=== PATIENT | female | born 1950 | race Caucasian/White ===

== ENCOUNTER 2017-08-09 07:14 | Day surgery (SDC) | payer MEDICARE ==
[2017-08-03 16:15] VITALS: BMI 30.2
[~2017-08-09 07:14] MED LIST: LACTATED RINGERS 1,000 ML IV SCH; LIDOCAINE 1% 20 ML VIAL (10MG/ML) FOR IV START INTRADERMA PRN; MOXIFLOXACIN HCL 0.5% DROPS 3 ML BTL OP ONE; TETRACAINE 0.5% OPHTH (PF) DROPS 4 ML BTL OP ONE; TIMOLOL 0.5% OPHTH SOLN (PF) 0.2 ML DROPERETTE OP ONE
[2017-08-09] MEDS: PHENYLEPHRINE 2.5% OPHTH DRP 2ML OP NR ×4 (07:43→08:08)
[2017-08-09] MEDS: CYCLOPENTOLATE 1% OPHTH SOLN 2 ML BTL OP ONE ×3 (07:45→08:03)
[2017-08-09 07:57] VITALS: TEMP 97
[2017-08-09] MEDS ORDERED: MIDAZOLAM 2 MG/2 ML VIAL ONE (08:39)
[2017-08-09] MEDS ORDERED: fentaNYL (PF) 50 MCG/ML 2 ML AMP ONE (08:39)
[2017-08-09] MEDS ORDERED: EPINEPHrine (PF) 0.3 ML in BALANCED SALT IRRIG SOLN COMB2 500 ML IRRIGATION ONE (08:44)
[2017-08-09] MEDS ORDERED: HYALURONATE SODIUM INTRAOCULAR 1 EACH SYRINGE (12MG/ML) INTRAOCULA ONE (08:47)
[2017-08-09] MEDS ORDERED: BALANCED SALT IRRIG SOLN COMB2 15 ML IRRIG.SOLN INTRAOCULA ONE (08:48)
[2017-08-09] MEDS ORDERED: LIDOCAINE 1% (PF) 10MG/ML VIAL MISCELLANE ONE (08:48)
[2017-08-09] MEDS ORDERED: TRYPAN BLUE 0.06% SYRINGE 0.5 ML SYRINGE INTRAOCULA ONE (08:49)
[2017-08-09] MEDS ORDERED: DUOVISC KIT (GREEN BOX) INTRAOCULA ONE (08:55)
--- NOTE | 2017-08-09 09:23 | P.OP ---
Date of Procedure: 08/09/17 Preoperative Diagnosis: NS & CS & moderate stage POAG Postoperative Diagnosis: same Procedure(s) Performed: PIOL & iStent Implants: PCB00 +18.00 & GTS 100L Anesthesia: MAC Surgeon: Christian Cornejo Estimated Blood Loss (ml): 0 Pathology: none sent Condition: stable Disposition: same day Indications for Procedure: blurry vision & glaucoma Operative Findings: no complicatinos
[2017-08-09 09:31] VITALS: BP 134/87; PULSE 77; RESP 18
--- NOTE | 2017-08-09 21:14 | OP ---
OPERATIVE REPORT DATE OF SURGERY: 08/09/2017 PREOPERATIVE DIAGNOSES:: 1. Nuclear sclerosis. 2. Cortical sclerosis. 3. Open angle glaucoma, moderate stage. POSTOPERATIVE DIAGNOSES:: 1. Nuclear sclerosis. 2. Cortical sclerosis. 3. Open angle glaucoma, moderate stage. OPERATION:: Phacoemulsification of cataract and intraocular lens implant of the left eye with an eye stent implantation. ESTIMATED BLOOD LOSS:: None. SPECIMEN TAKEN:: None. SURGEON: Dr. Christian Cornejo. ANESTHESIA: Topical. NARRATIVE:: After obtaining the appropriate consent, the patient was brought to the operating room, where she was placed on a clay preparation supervisor and prepped and draped in the usual sterile manner. She was approached from her left temporal side and at the 5 o'clock position, a 1.1-mm stab blade was used to create a paracentesis port. Through this opening, 1% Xylocaine MPF 50/50 mixed with balanced salt solution was injected into the anterior chamber. This was followed by installation of Trypan blue, which was left in place for approximately 3 minutes. Trypan was irrigated with balanced salt solution, then the anterior chamber was stabilized using Amvisc. At the 3 o'clock position, a 2.5-mm keratome was used to create a self-sealing corneal flap incision. The patient's head was rotated toward her right approximately 45 degrees and examination of the nasal anterior chamber angle easily identified the trabecular mesh work. A Glaukos GTS 100L eye stent was advanced across the anterior chamber and placed into the trabecular meshwork without difficulty. The device was confirmed in good position with the tip of the viscoelastic cannula. The patient was then rotated back to the normal supine position for the removal of the rest of the cataract. A cystotome was introduced to begin a continuous tear capsulorrhexis, which was completed using the Utrata forceps. Hydrodissection and hydrodelineation of the lens was accomplished with balance salt solution. Phacoemulsification of the lens utilizing phaco chop was accomplished in 1.16 seconds at 11% power. Additional Xylocaine MPF was instilled into the anterior chamber. This was followed by removal of the remaining cortex under irrigation and aspiration along with careful polishing of the posterior capsule in capsule vacuum mode. Additional Amvisc was then used to stabilize the capsular bag and an JACKY PCB00 18.0 diopter posterior chamber intraocular lens was then inserted into the capsular bag without difficulty. The remaining viscoelastic was then removed from in and around the intra-ocular lens with irrigation and aspiration. The eye was then brought to normal intraocular pressures through the paracentesis port with confirmation that the temporal incision was watertight. She then received 2 drops of 0.5% timolol followed by 2 drops of Vigamox, was then lightly patched and shielded in the usual manner. There were no complications from the procedure. She tolerated the procedure well and was returned to outpatient recovery in good condition. MMODL / IJN: [id number] /
== END 2017-08-09 09:57 | disposition home or self-care (01) ==
LOC: OR 07:14
PROVIDERS: ATTEND Ophthalmology
DX: H40.1132 Primary open-angle glaucoma, bilateral, moderate stage (principal); H25.12 Age-related nuclear cataract, left eye; H52.223 Regular astigmatism, bilateral; H52.4 Presbyopia; H52.13 Myopia, bilateral; H00.023 Hordeolum internum right eye, unspecified eyelid; M19.90 Unspecified osteoarthritis, unspecified site; Z88.8 Allergy status to other drugs, medicaments and biological substances; Z79.899 Other long term (current) drug therapy
CPT/HCPCS: 66984; C1780; C1783; J2250; J0171; J3010; J2001

== ENCOUNTER → 2017-11-10 | Outpatient (CLI) | payer MEDICARE ==
--- NOTE | 2017-11-13 11:45 | MM ---
Reason for exam: screening (asymptomatic). Last mammogram was performed 1 year and 6 months ago. History: Patient is postmenopausal. Family history of breast cancer in paternal grandmother, premenopausal breast cancer in paternal cousin, breast cancer in cousin, and breast cancer in aunt. Excisional biopsy of the right breast, 1960. Took hormonal contraceptives for 10 years beginning at age 14. Took estrogen for 8 years beginning at age 30. Took progesterone for 3 years beginning at age 51. Physical Findings: A clinical breast exam by your physician is recommended on an annual basis and results should be correlated with mammographic findings. MG 3D Screening Mammo W/Cad Bilateral CC and MLO view(s) were taken. Prior study comparison: May 24, 2016, bilateral MG 3d screening mammo w/cad. December 25, 2013, bilateral digital screening mammo w/CAD. There are scattered fibroglandular densities. Stable benign calcifications. No significant changes when compared with prior studies. ASSESSMENT: Benign, BI-RAD 2 RECOMMENDATION: Routine screening mammogram of both breasts in 1 year.
== END | disposition home or self-care (01) ==
LOC: RADMAMWWP 09:01
PROVIDERS: ATTEND Family Medicine
DX: Z12.31 Encounter for screening mammogram for malignant neoplasm of breast (principal)
CPT/HCPCS: 77063; 77067

== ENCOUNTER 2017-11-22 06:02 | Day surgery (SDC) | payer MEDICARE ==
[2017-11-17 10:59] VITALS: BMI 30.2
[2017-11-22] MEDS ORDERED: LACTATED RINGERS 1,000 ML IV SCH (06:10)
[2017-11-22] MEDS ORDERED: LIDOCAINE 1% 20 ML VIAL (10MG/ML) FOR IV START INTRADERMA PRN (06:10)
[2017-11-22 06:41] VITALS: TEMP 98.7
[2017-11-22] MEDS: PILOCARPINE 2% OPHTH DROPS 15 ML BTL OP SCH ×4 (06:54→07:39)
[2017-11-22] MEDS ORDERED: ONDANSETRON 4 MG/2 ML VIAL IVP ONE (07:01)
[2017-11-22] MEDS ORDERED: DUOVISC KIT (GREEN BOX) INTRAOCULA ONE (07:17)
[2017-11-22] MEDS ORDERED: BALANCED SALT IRRIG SOLN COMB2 15 ML IRRIG.SOLN IRRIGATION ONE (07:17)
[2017-11-22] MEDS ORDERED: MOXIFLOXACIN HCL 0.5% DROPS 3 ML BTL RIGHT EYE ONE (07:21)
[2017-11-22] MEDS ORDERED: TIMOLOL 0.5% OPHTH SOLN (PF) 0.2 ML DROPERETTE RIGHT EYE ONE (07:21)
[2017-11-22] MEDS ORDERED: MIDAZOLAM 2 MG/2 ML VIAL ONE (07:27)
[2017-11-22] MEDS ORDERED: BALANCED SALT IRRIG SOLN COMB2 500 ML IRRIGATION ONE (07:33)
[2017-11-22] MEDS ORDERED: LIDOCAINE (PF) 10 MG/ML 2 ML VIAL SQ ONE (07:38)
[2017-11-22] MEDS ORDERED: TETRACAINE 0.5% OPHTH DROPS 15 ML BTL RIGHT EYE SCH (07:45)
[2017-11-22 08:13] VITALS: RESP 18
--- NOTE | 2017-11-22 08:39 | P.OP ---
Date of Procedure: 11/22/17 Preoperative Diagnosis: POAG Postoperative Diagnosis: same Procedure(s) Performed: viscanaloplasty OD. Implants: none Anesthesia: MAC Surgeon: Christian Cornejo Estimated Blood Loss (ml): 5 Pathology: none sent Condition: stable Disposition: same day Indications for Procedure: POAG not controlled on medication well. Operative Findings: no complications
[2017-11-22 08:56] VITALS: BP 150/78; PULSE 82
--- NOTE | 2017-11-23 07:45 | OP ---
OPERATIVE REPORT DATE OF SURGERY: November 22, 2017. PROCEDURES: Visco canaloplasty of the right eye. PREOPERATIVE DIAGNOSIS: Primary open-angle glaucoma, moderate stage. POSTOPERATIVE DIAGNOSIS: Primary open-angle glaucoma, moderate stage. SURGEON: Dr. Christian Cornejo. ANESTHESIA: Topical. ESTIMATED BLOOD LOSS: Less than 5 mL. SPECIMEN TAKEN: None. BACKGROUND: The patient has a longstanding history of primary open-angle glaucoma and is becoming intolerant to the topical medications. The Visco canaloplasty procedure was chosen in an attempt to reduce the dependence on topical medications for her glaucoma. NARRATIVE: After obtaining the appropriate consent, the patient was brought to the operating room. There she was placed on cardiac monitoring, prepped and draped in the usual sterile manner. She was approached from her right temporal side and at the 11 o'clock position an MVR blade was used to create a paracentesis port. Through this opening 1% lidocaine MPF 50-50 mix of balanced salt solution was injected into the anterior chamber. This was followed by stabilization of the anterior chamber with Viscoat. At the 9 o'clock position, a 2.5 mm keratome was used to create a self-sealing corneal flap incision in a Langerman's fashion. Additional Viscoat was placed on the patient's cornea and she was asked to rotate her head approximately 45 degrees to her left and a Gonia prism was placed on the eye to identify the trabecular meshwork. At this stage, a [id number] device was passed across the anterior chamber into the nasal trabecular meshwork where a vertical slit over the trabecular meshwork was created. The cannula was then passed beneath and into Schlemm's canal in the superior direction for approximately 180 degrees and retracted. The device was then rotated 180 degrees and the inferior Schlemm's canal was then cannulated with the cannulation device. At this stage rather than retracting the cannula, however, a trabeculectomy was performed for approximately 120 degrees in this particular area. A moderate amount of blood was identified and the remaining viscoelastic was then removed under irrigation aspiration. The eye was then brought to normal intraocular pressure through the paracentesis port and the temporal incision was confirmed watertight. She then received 2 drops of 0.5% timolol followed by 2 drops of moxifloxacin and 2 drops of 2% pilocarpine. She was then lightly patched and shielded in the usual manner. There were no complications from the procedure. She tolerated the procedure well. She was returned to outpatient recovery in good condition. HUSSEIN / MIGUELN: [id number] /
== END 2017-11-22 08:57 | disposition home or self-care (01) ==
LOC: OR 06:02
PROVIDERS: ATTEND Ophthalmology
DX: H40.1112 Primary open-angle glaucoma, right eye, moderate stage (principal); H52.13 Myopia, bilateral; H52.223 Regular astigmatism, bilateral; H52.4 Presbyopia; H00.026 Hordeolum internum left eye, unspecified eyelid; Z96.1 Presence of intraocular lens; I10 Essential (primary) hypertension; M19.90 Unspecified osteoarthritis, unspecified site; E89.0 Postprocedural hypothyroidism; Z79.899 Other long term (current) drug therapy; Z79.1 Long term (current) use of non-steroidal anti-inflammatories (NSAID); Z88.8 Allergy status to other drugs, medicaments and biological substances; H00.023 Hordeolum internum right eye, unspecified eyelid
CPT/HCPCS: 66174; J2250; J2001; J2405

== ENCOUNTER → 2018-02-28 | Outpatient (CLI) | payer MEDICARE ==
[2018-02-28 10:36] LABS: Blood Urea Nitrogen 21 mg/dL (7-17)
--- NOTE | 2018-02-28 11:16 | CT ---
EXAMINATION TYPE: CT abdomen w con DATE OF EXAM: 02/28/2018 COMPARISON: NONE HISTORY: Upper abd pain, abn US, renal cyst CT DLP: 816.7 mGycm Automated exposure control for dose reduction was used. TECHNIQUE: Helical acquisition of images was performed from the lung bases through the top of iliac crest to include entire abdomen. CONTRAST: Performed with Oral Contrast and with IV Contrast, patient injected with 100 mL of Isovue 300. FINDINGS: LUNG BASES: No significant abnormality is appreciated. Small fixed hiatal hernia noted. LIVER/GB: Mild hepatic steatosis. No space-occupying masses seen. Gallbladder is unremarkable. PANCREAS: No significant abnormality is seen. SPLEEN: No significant abnormality is seen. ADRENALS: Small left adrenal nodule measuring 9 mm may reflect adenoma. Right adrenal gland is unrema rkable. KIDNEYS: Simple appearing cyst midpole left kidney measuring 2.4 cm with Hounsfield unit measurement of 11. No solid renal lesions identified. BOWEL: No significant abnormality is seen. LYMPH NODES: No significant abnormality is seen. OSSEOUS STRUCTURES: No significant abnormality is seen. FREE AIR: No free air is visualized. IMPRESSION: 1. Simple cyst left kidney. 2. Left adrenal adenoma. 3. A fixed hiatal hernia
== END | disposition home or self-care (01) ==
LOC: RADCTMAIN 10:03
PROVIDERS: ATTEND Family Medicine
DX: N28.1 Cyst of kidney, acquired (principal); D35.02 Benign neoplasm of left adrenal gland; K44.9 Diaphragmatic hernia without obstruction or gangrene; R10.9 Unspecified abdominal pain
CPT/HCPCS: 82565; 84520; 74160; 36415; Q9967

== ENCOUNTER → 2018-03-14 | Outpatient (CLI) | payer MEDICARE ==
[~2018-03-14] MED LIST changes: -LACTATED RINGERS 1,000 ML IV SCH; -LIDOCAINE 1% 20 ML VIAL (10MG/ML) FOR IV START INTRADERMA PRN; -MOXIFLOXACIN HCL 0.5% DROPS 3 ML BTL OP ONE; +REGADENOSON 0.4 MG/5 ML SYRINGE IV ONE; -TETRACAINE 0.5% OPHTH (PF) DROPS 4 ML BTL OP ONE; -TIMOLOL 0.5% OPHTH SOLN (PF) 0.2 ML DROPERETTE OP ONE
--- NOTE | 2018-03-14 11:17 | NM ---
EXAMINATION TYPE: NM stress lexiscan cardiolite DATE OF EXAM: 03/14/2018 COMPARISON: NONE HISTORY: Abnormal EKG per order. History of asthma, hypertension, hypercholesteremia, and family hist ory of heart attacks. TECHNIQUE: After the intravenous administration of 10.06 mCi Tc 99m Sestamibi - Cardiolite resting S PECT images acquired 45 minutes post injection. The patient received 0.4mg Lexiscan, 23.5 mCi Tc 99m Sestamibi - Stress images obtained [address] injection FINDINGS: Review of stress and rest SPECT images demonstrates no distinct perfusion abnormality. Gated analysi s shows normal wall motion with an estimated left ventricular ejection fraction of 58 %. IMPRESSION: No scintigraphic evidence for reversible ischemia.
--- NOTE | 2018-03-14 12:25 | EST ---
EXERCISE STRESS DATE OF SERVICE: 03/14/2018 AGE: 67 SEX: Female HT: 60" WT: 150 pounds PROTOCOL: Lexiscan Cardiolite STAGE: DURATION OF EXERCISE: HEART RATE REST: 87 BLOOD PRESSURE REST: 146/88 MAXIMUM HEART RATE ACHIEVED: 119 MAXIMUM BLOOD PRESSURE: 179/99 85% MPHR: 100% MPHR: METS: INDICATIONS: Abnormal EKG. CLINICAL INFORMATION: Baseline rhythm is sinus mechanism, rate of 87, normal axis and intervals. Normal electrocardiogram. Baseline blood pressure 146/88 mmHg. Patient received an injection of Lexiscan. Electrocardiographic monitoring revealed no evidence of diagnostic ischemic ST deviation. Cardiolite was injected per protocol. CONCLUSION: 1. Nondiagnostic electrocardiographic stress testing. 2. Nuclear images will be reported separately. MMODL / IJN: [id number] /
== END | disposition home or self-care (01) ==
LOC: RADNMMAIN 07:54
PROVIDERS: ATTEND Family Medicine
DX: R94.31 Abnormal electrocardiogram [ECG] [EKG] (principal)
CPT/HCPCS: 93017; 78452; A9500; J2785

== ENCOUNTER → 2019-07-11 | Outpatient (CLI) | payer MEDICARE ==
--- NOTE | 2019-07-12 09:27 | BD ---
EXAMINATION TYPE: Axial Bone Density DATE OF EXAM: 07/11/2019 COMPARISON: 05.19.2016 CLINICAL HISTORY: M 81.0 Height: 60 Weight: 159.4 FRAX RISK QUESTIONS: Alcohol (3 or more units per day): no Family History (Parent hip fracture): no Glucocorticoids (More than 3mos): no (Ex: prednisone, prednisolone, methylprednisolone, dexamethasone, and hydrocortisone). History of Fracture in Adulthood: no Secondary Osteoporosis: 1. Type 1 Diabetes: no 2. Hyperthyroidism: no 3. Menopause before 45: yes 4. Malnutrition: no 5. Chronic liver disease: no Rheumatoid Arthritis: no Current Tobacco Use: no RISK FACTORS HISTORY OF: Surgery to Spine/Hip(right/left)/Wrist (right/left): no Family History of Osteoporosis: yes Active: yes Diet low in dairy products/other sources of calcium: yes Postmenopausal woman: hysterectomy age 30 MEDICATIONS: cholesterol meds Osteoporosis Medications: fosamax How Lon weeks but took it in the past- has been off it for 3 years Additional History: EXAM MEASUREMENTS: Bone mineral densitometry was performed using the [employer]out System. Bone mineral density as measured about the Lumbar spine is: ----- L1-L4(G/cm2): 1.063 T Score Values are as follows: ----- L2: -0.7 ----- L3: -0.5 ----- L4: -2.0 ----- L1-L4: -1.0 Bone mineral density has: increased 10.1 % since study of: 05.24.2016 Bone mineral density about the R hip (g/cm2): 0.661 Bone mineral density about the L hip (g/cm2): 0.635 T Score values are as follows: -----R Neck: -2.7 -----L Neck: -2.9 -----R Total: -2.3 -----L Total: -2.3 Bone mineral density has: increased 7.3 % since study of: 05.19.2016 IMPRESSION: Osteoporosis (T Score less than -2.5). There is increased fracture risk and therapy is usually indicated based on age. Re-Screen 1-2 years. NOTE: T-SCORE=SD OF THE YOUNG ADULT MEAN.
--- NOTE | 2019-07-12 11:37 | MM ---
Reason for exam: screening (asymptomatic). Last mammogram was performed 1 year and 8 months ago. History: Patient is postmenopausal and history of other cancer. Family history of breast cancer in paternal grandmother, premenopausal breast cancer in paternal cousin, breast cancer in cousin, and breast cancer in aunt. Excisional biopsy of the right breast, 1960. Took hormonal contraceptives for 10 years beginning at age 14. Took estrogen for 8 years beginning at age 30. Took progesterone for 3 years beginning at age 51. Physical Findings: A clinical breast exam by your physician is recommended on an annual basis and results should be correlated with mammographic findings. MG 3D Screening Mammo W/Cad Bilateral CC and MLO view(s) were taken. Prior study comparison: November 10, 2017, bilateral MG 3d screening mammo w/cad. May 24, 2016, bilateral MG 3d screening mammo w/cad. The breast tissue is heterogeneously dense. This may lower the sensitivity of mammography. Benign appearing bilateral calcifications. No suspicious abnormality. No significant changes when compared with prior studies. ASSESSMENT: Benign, BI-RAD 2 RECOMMENDATION: Routine screening mammogram of both breasts in 1 year.
== END | disposition home or self-care (01) ==
LOC: RADMAMWWP 15:22
PROVIDERS: ATTEND Family Medicine
DX: Z12.31 Encounter for screening mammogram for malignant neoplasm of breast (principal); M81.0 Age-related osteoporosis without current pathological fracture
CPT/HCPCS: 77063; 77067; 77080

== ENCOUNTER 2021-04-07 08:57 | Day surgery (SDC) | payer MEDICARE ==
[2021-04-05 12:30] VITALS: BMI 30.8
[~2021-04-07 08:57] MED LIST changes: -REGADENOSON 0.4 MG/5 ML SYRINGE IV ONE; +TOBRAMYCIN 0.3% OPHTH DROPS 5 ML BTL RIGHT EYE PRN; +mitoMYcin for Eyes 0.06 MG, EMPTY SYRINGE 1 SYR OP ONE
[2021-04-07 09:29] VITALS: RESP 16; TEMP 97.5
[2021-04-07] MEDS ORDERED: LACTATED RINGERS 1,000 ML IV ONE (09:34)
[2021-04-07] MEDS ORDERED: LIDOCAINE 1% (10MG/ML) FOR IV START INTRADERMA ONE (09:35)
[2021-04-07] MEDS ORDERED: MIDAZOLAM 2 MG/2 ML VIAL ONE (10:18)
[2021-04-07] MEDS ORDERED: fentaNYL (PF) 50 MCG/ML 2 ML AMP ONE (10:18)
[2021-04-07] MEDS ORDERED: TETRACAINE 0.5% OPHTH (PF) DROPS 4 ML BTL RIGHT EYE STA (10:20)
[2021-04-07] MEDS ORDERED: BALANCED SALT IRRIG SOLN COMB2 15 ML IRRIG.SOLN IRRIGATION ONE (10:31)
[2021-04-07] MEDS ORDERED: LIDOCAINE 2%-EPI 1:100,000 20 ML VIAL SQ ONE (10:49)
[2021-04-07] MEDS ORDERED: FLUORESCEIN STRIPS 1 MG STRIP RIGHT EYE ONE (11:33)
[2021-04-07] MEDS ORDERED: ATROPINE OPHTH SOLN 1% 2 ML BTL RIGHT EYE ONE (11:36)
--- NOTE | 2021-04-07 11:39 | P.OP ---
Date of Procedure: 04/07/21 Preoperative Diagnosis: POAG severe, not controlled Postoperative Diagnosis: same Procedure(s) Performed: exPress Shunt w/ MMC Implants: exPress shunt Anesthesia: MAC Surgeon: Christian Cornejo Pathology: none sent Condition: stable Disposition: same day Indications for Procedure: poor IOP control Operative Findings: no complications
[2021-04-07 12:15] VITALS: BP 157/90; PULSE 97
--- NOTE | 2021-04-08 21:57 | OP ---
OPERATIVE REPORT DATE OF SURGERY: April 07, 2021. PROCEDURE PERFORMED: Express shunt implantation with mitomycin treatment. PREOPERATIVE DIAGNOSIS: Primary open-angle glaucoma, moderate stage. POSTOPERATIVE DIAGNOSIS: Primary open angle glaucoma, moderate stage. SURGEON: Dr. Christian Cornejo. ANESTHESIA: Topical. ESTIMATED BLOOD LOSS: Less than 5 mL. SPECIMEN: None. NARRATIVE: After obtaining the appropriate consent, the patient was brought to the operating room. There she was placed on cardiac monitoring prepped and draped in the usual sterile manner. The patient was approached from the 12 o'clock position and a 5-0 Vicryl suture was placed through the superior limbus of the cornea and applied as a traction suture to direct the eye in a down gaze. At the superior temporal quadrant, the conjunctiva was dissected down to bare sclera with Mason scissors and beneath this area 2% lidocaine with epinephrine was bathed around the superior portion of the globe in the subtenon's space. Using blunt and sharp dissection, as needed a large superior pocket was created between the tenon and the globe. The conjunctiva was undermined as far as to the superior nasal quadrant of the eye and a peritomy of the conjunctiva was then created at the 12 o'clock position. All hemostasis was controlled using limited wet-field cautery and an area approximately 3 x 3 mm, which was identified using a bear care caliper was placed at the 12 o'clock position. This area was further outlined using the wet-field cautery to desiccate the scleral tissue. A 2.75 mm crescent blade was used to create a scleral pocket within the boundaries of this area and the Mason scissors were then used to open up either side of the newly created pocket. Mitomycin at the strength of 0.2 mg/mL was soaked into a Weck-Sury sponge which was then placed against the apex of the newly created partial thickness scleral flap. This was left in place for 3 minutes. Copious irrigation after the tissue was treated with mitomycin was then applied and a 27-gauge hypodermic needle was used then as a trocar at the apex of the partial-thickness scleral flap to create an opening into the anterior chamber. Care was taken to maintain a parallel approach to the iris through this opening. This was followed by placement of an Ex-Press model P50 shunt was placed through the previously piloted scleral opening. Good reduction of aqueous was noted from the anterior chamber once the placement of the shunt tube was properly seated and the partial-thickness scleral flap was loosely sutured back to the sclerae using 10-0 nylon suture on each side of the flap. Additional hemostasis was applied to any residual evidence of bleeding and the conjunctiva was then brought over the superior limbus of the cornea and at the superior temporal area 8-0 Vicryl suture was used to reapproximate the cut edges and with the knot buried beneath the conjunctival tissue. Fluorescein strip was used to prove watertight integrity and the traction suture was removed from the eye. The patient then received 2 drops of tobramycin ophthalmic medication and 2 drops of 1% atropine at the end of the case. She was then lightly patched and shielded in the usual manner. There were no complications from the procedure. She tolerated the procedure well and was returned to outpatient recovery in good condition. HUSSEIN / GLORIA: [id number] /
== END 2021-04-07 12:26 | disposition home or self-care (01) ==
LOC: OR 08:57
PROVIDERS: ATTEND Ophthalmology
DX: H40.1132 Primary open-angle glaucoma, bilateral, moderate stage (principal); H16.223 Keratoconjunctivitis sicca, not specified as Sjogren's, bilateral; H00.023 Hordeolum internum right eye, unspecified eyelid; H00.026 Hordeolum internum left eye, unspecified eyelid; H47.393 Other disorders of optic disc, bilateral; H52.223 Regular astigmatism, bilateral; H52.13 Myopia, bilateral; H52.4 Presbyopia; Z96.1 Presence of intraocular lens; I10 Essential (primary) hypertension; M19.90 Unspecified osteoarthritis, unspecified site; Z79.899 Other long term (current) drug therapy; Z88.1 Allergy status to other antibiotic agents; Z88.8 Allergy status to other drugs, medicaments and biological substances; Z83.3 Family history of diabetes mellitus; Z82.49 Family history of ischemic heart disease and other diseases of the circulatory system
CPT/HCPCS: 66183; C1783; J2250; J3010

== ENCOUNTER 2021-09-03 18:41 | Observation (INO) | payer MEDICARE ==
[2021-09-03] MEDS ORDERED: DIAZEPAM 5 MG/ML 2 ML INJ IVP STA (19:44)
[2021-09-03] MEDS ORDERED: SODIUM CHLORIDE 0.9% 500 ML 500 ML IV STA (19:44)
[2021-09-03] MEDS ORDERED: ONDANSETRON 4 MG/2 ML VIAL IVP STA (19:44)
[2021-09-03 20:19] LABS: Basophils % (A) 0 %; Eosinophils # (A) 0.1 k/uL (0-0.7); Eosinophils % (A) 1 %; HCT 43.4 % (34.0-46.0); HGB 13.8 gm/dL (11.4-16.0); Lymphocytes # (A) 1.3 k/uL (1.0-4.8); Lymphocytes % (A) 15 %; MCH 28.5 pg (25.0-35.0); MCHC 31.7 g/dL (31.0-37.0); MCV 89.8 fL (80.0-100.0); Mean Platelet Volume 7.7; Monocytes # (A) 0.2 k/uL (0-1.0); Monocytes % (A) 3 %; Neutrophils % (A) 80 %; Platelet Count 337 k/uL (150-450); RBC 4.83 m/uL (3.80-5.40); WBC 8.8 k/uL (3.8-10.6)
[2021-09-03 20:44] LABS: ALT 27 U/L (4-34); AST 37 U/L (14-36); African American GFR (CKD) >90 (>60 ml/min/1.73 sqM); Albumin 4.3 g/dL (3.5-5.0); Alkaline Phosphatase 111 U/L (38-126); Anion Gap 12 mmol/L; Blood Urea Nitrogen 20 mg/dL (7-17); Calcium 8.9 mg/dL (8.4-10.2); Carbon Dioxide 20 mmol/L (22-30); Chloride 102 mmol/L (98-107); Glucose 212 mg/dL (74-99); Non-African American GFR(CKD) >90 (>60 ml/min/1.73 sqM); Potassium 4.2 mmol/L (3.5-5.1); Sodium 134 mmol/L (137-145); Total Bilirubin 0.3 mg/dL (0.2-1.3)
[2021-09-03 22:22] LABS: Appearance,Urine Clear (Clear); Bilirubin,Urine Negative (Negative); Blood,Urine Negative (Negative); Color,Urine Yellow; Glucose,Urine (UA) 3+ (Negative); Ketones,Urine 1+ (Negative); Leukocyte Esterase,Urine Negative (Negative); Nitrite,Urine Negative (Negative); PH, Urine 5.5 (5.0-8.0); Protein,Urine Trace (Negative); Specific Gravity,Urine 1.022 (1.001-1.035); Urobilinogen,Urine <2.0 mg/dL (<2.0)
--- NOTE | 2021-09-03 22:40 | ED ---
Nausea/Vomiting/Diarrhea HPI - General Chief complaint: Nausea/Vomiting/Diarrhea Stated complaint: Fall Time Seen by Provider: 09/03/21 19:13 Source: EMS Mode of arrival: EMS Limitations: no limitations - History of Present Illness Initial comments: 71 year-old female patient presents to the emergency department for evaluation of weakness and dizziness that started around 3PM today. She states that whenever she moves her head or changes position she becomes extremely dizzy. She did have an episode of vomiting after the dizziness started. She denies headache. She denies any fall or head injury. Denies any chest pain or shortness of breath. Denies numbness, tingling, or weakness to the extremities. Denies blurred or double vision. Patient denies any recent rash, fever, chills, cough, abdominal pain, diarrhea, constipation, back pain, hematuria, dysuria, urinary urgency, urinary frequency, or any other complaints. - Related Data Home Medications Medication Instructions Recorded Confirmed Bimatoprost [Lumigan .01% Ophth 1 drop LEFT EYE HS 04/05/21 09/03/21 Soln] prednisoLONE ACETATE 1% OPHTH 1 drops RIGHT EYE BID 09/03/21 09/03/21 [Pred Forte 1%] Allergies Allergy/AdvReac Type Severity Reaction Status Date / Time guaifenesin Allergy Severe Rapid Verified 09/03/21 20:40 Heart Rate levofloxacin [From Levaquin] Allergy PAIN IN Verified 09/03/21 20:40 NECK,HEAD AND SHOULDER Review of Systems ROS Statement: Those systems with pertinent positive or pertinent negative responses have been documented in the HPI. ROS Other: All systems not noted in ROS Statement are negative. Past Medical History Past Medical History: Osteoarthritis (OA) Additional Past Medical History / Comment(s): GLAUCOMA, BACK PAIN. , OSTEOPOROSIS., History of Any Multi-Drug Resistant Organisms: None Reported Past Surgical History: Hysterectomy, Joint Replacement Additional Past Surgical History / Comment(s): RIGHT CATARACT SURGERY, SHELLY TOTAL KNEES, 1/2 OF THYROID REMOVED. Past Anesthesia/Blood Transfusion Reactions: Postoperative Nausea & Vomiting (PONV) Past Psychological History: No Psychological Hx Reported Smoking Status: Never smoker - Past Family History Mother Family Medical History: No Reported History General Exam Limitations: no limitations General appearance: alert, in no apparent distress, other (This is a well- developed, well-nourished adult female patient in no acute distress. ) Eye exam: Present: normal appearance, PERRL, EOMI, nystagmus (positive rightward gaze nystagmus), other (Positive skew test bilateral). Absent: scleral icterus, conjunctival injection, periorbital swelling ENT exam: Present: normal exam, normal oropharynx, mucous membranes moist Respiratory exam: Present: normal lung sounds bilaterally. Absent: respiratory distress, wheezes, rales, rhonchi, stridor Cardiovascular Exam: Present: regular rate, normal rhythm, normal heart sounds. Absent: systolic murmur, diastolic murmur, rubs, gallop, clicks GI/Abdominal exam: Present: soft, normal bowel sounds. Absent: distended, tenderness, guarding, rebound, rigid Neurological exam: Present: alert, oriented X3, CN II-XII intact Psychiatric exam: Present: normal affect, normal mood Skin exam: Present: warm, dry, intact, normal color. Absent: rash Course Vital Signs 09/03/21 09/03/21 09/04/21 18:47 23:37 00:30 Temperature 97.5 F L 97.3 F L Pulse Rate 97 101 H Pulse Rate [ 98 Right Sitting] Pulse Rate [ 94 Supine] Respiratory 18 18 Rate Blood Pressure 184/100 167/109 Blood Pressure 162/110 [Right Arm Sitting] Blood Pressure 158/92 [Right Arm Supine] O2 Sat by Pulse 93 L 98 Oximetry Medical Decision Making - Medical Decision Making 71-year-old female patient presented to the emergency department today for evaluation of weakness and dizziness. Physical examination did reveal a right- sided gaze nystagmus. Positive skew test. She is otherwise neurologically intact with no focal deficits. Labs reviewed and did reveal BUN at 20, blood glucose at 212, urinalysis showed 3+ glucose 1+ ketones. CBC was normal. No signs were within normal range except for the pressure which was initially elevated, this did improve. I did discuss findings and results with the patient . Patient did attempt to ambulate to the bathroom, was very unsteady and unable to maintain balance. We discussed new onset diabetes. She'll be admitted to the hospital for IV fluids further evaluation and monitoring. She is agreeable this plan. Case discussed with my attending Dr. Matta. - Lab Data Result diagrams: 09/03/21 20:06 09/03/21 20:06 Lab Results 09/03/21 09/03/21 09/03/21 Range/Units 20:06 20:06 20:06 WBC 8.8 (3.8-10.6) k/uL RBC 4.83 (3.80-5.40) m/uL Hgb 13.8 (11.4-16.0) gm/dL Hct 43.4 (34.0-46.0) % MCV 89.8 (80.0-100.0) fL MCH 28.5 (25.0-35.0) pg MCHC 31.7 (31.0-37.0) g/dL RDW 14.0 (11.5-15.5) % Plt Count 337 (150-450) k/uL MPV 7.7 Neutrophils % 80 % Lymphocytes % 15 % Monocytes % 3 % Eosinophils % 1 % Basophils % 0 % Neutrophils # 7.0 (1.3-7.7) k/uL Lymphocytes # 1.3 (1.0-4.8) k/uL Monocytes # 0.2 (0-1.0) k/uL Eosinophils # 0.1 (0-0.7) k/uL Basophils # 0.0 (0-0.2) k/uL Sodium 134 L (137-145) mmol/L Potassium 4.2 (3.5-5.1) mmol/L Chloride 102 (98-107) mmol/L Carbon Dioxide 20 L (22-30) mmol/L Anion Gap 12 mmol/L BUN 20 H (7-17) mg/dL Creatinine 0.37 L (0.52-1.04) mg/dL Est GFR (CKD-EPI)AfAm >90 (>60 ml/min/1.73 sqM) Est GFR (CKD-EPI)NonAf >90 (>60 ml/min/1.73 sqM) Glucose 212 H (74-99) mg/dL Plasma Lactic Acid Russell (0.7-2.0) mmol/L Calcium 8.9 (8.4-10.2) mg/dL Total Bilirubin 0.3 (0.2-1.3) mg/dL AST 37 H (14-36) U/L ALT 27 (4-34) U/L Alkaline Phosphatase 111 (38-126) U/L Troponin I (0.000-0.034) ng/mL Total Protein 7.0 (6.3-8.2) g/dL Albumin 4.3 (3.5-5.0) g/dL Urine Color Yellow Urine Appearance Clear (Clear) Urine pH 5.5 (5.0-8.0) Ur Specific Cherry 1.022 (1.001-1.035) Urine Protein Trace H (Negative) Urine Glucose (UA) 3+ H (Negative) Urine Ketones 1+ H (Negative) Urine Blood Negative (Negative) Urine Nitrite Negative (Negative) Urine Bilirubin Negative (Negative) Urine Urobilinogen <2.0 (<2.0) mg/dL Ur Leukocyte Esterase Negative (Negative) Coronavirus (PCR) (Not Detectd) 09/03/21 09/03/21 09/03/21 Range/Units 20:06 20:06 20:06 WBC (3.8-10.6) k/uL RBC (3.80-5.40) m/uL Hgb (11.4-16.0) gm/dL Hct (34.0-46.0) % MCV (80.0-100.0) fL MCH (25.0-35.0) pg MCHC (31.0-37.0) g/dL RDW (11.5-15.5) % Plt Count (150-450) k/uL MPV Neutrophils % % Lymphocytes % % Monocytes % % Eosinophils % % Basophils % % Neutrophils # (1.3-7.7) k/uL Lymphocytes # (1.0-4.8) k/uL Monocytes # (0-1.0) k/uL Eosinophils # (0-0.7) k/uL Basophils # (0-0.2) k/uL Sodium (137-145) mmol/L Potassium (3.5-5.1) mmol/L Chloride (98-107) mmol/L Carbon Dioxide (22-30) mmol/L Anion Gap mmol/L BUN (7-17) mg/dL Creatinine (0.52-1.04) mg/dL Est GFR (CKD-EPI)AfAm (>60 ml/min/1.73 sqM) Est GFR (CKD-EPI)NonAf (>60 ml/min/1.73 sqM) Glucose (74-99) mg/dL Plasma Lactic Acid Russell 1.8 (0.7-2.0) mmol/L Calcium (8.4-10.2) mg/dL Total Bilirubin (0.2-1.3) mg/dL AST (14-36) U/L ALT (4-34) U/L Alkaline Phosphatase (38-126) U/L Troponin I <0.012 (0.000-0.034) ng/mL Total Protein (6.3-8.2) g/dL Albumin (3.5-5.0) g/dL Urine Color Urine Appearance (Clear) Urine pH (5.0-8.0) Ur Specific Cherry (1.001-1.035) Urine Protein (Negative) Urine Glucose (UA) (Negative) Urine Ketones (Negative) Urine Blood (Negative) Urine Nitrite (Negative) Urine Bilirubin (Negative) Urine Urobilinogen (<2.0) mg/dL Ur Leukocyte Esterase (Negative) Coronavirus (PCR) Not Detected (Not Detectd) - EKG Data -: EKG Interpreted by Sd EKG Comments: EKG obtained at 2022 shows normal sinus rhythm with a prolonged QT interval. Ventricular rate is 93, AK interval 178, QRS duration 80, QT 414, QTC 514. No evidence of ST elevation or depression. Disposition Clinical Impression: Dizziness, New onset type 2 diabetes mellitus, Weakness Disposition: ADMITTED IP TO THIS [facility] Condition: Serious Referrals: Erickson Long DO [Primary Care Provider] - 1-2 days Decision to Admit Reason: Admit from EC Decision Date: 09/03/21 Decision Time: 23:44
[2021-09-03] MEDS ORDERED: hydrALAZINE HCL 25 MG TAB PO PRN (23:13)
[2021-09-03] MEDS ORDERED: NALOXONE 0.4 MG/ML 1 ML VIAL IV PRN (23:39)
[2021-09-03] MEDS ORDERED: MECLIZINE 25 MG TAB PO PRN (23:43)
[2021-09-03] MEDS ORDERED: MECLIZINE 12.5 MG TAB PO STA (23:43)
[2021-09-04] MEDS: amLODIPine 5 MG TAB PO SCH ×2 (00:33→20:36)
[2021-09-04] MEDS: SODIUM CHLORIDE 0.9% 1,000 ML IV SCH ×2 (00:48→12:13)
[2021-09-04 00:52] LABS: Glucose,Whole Blood 167 mg/dL (75-99)
[2021-09-04 06:14] LABS: African American GFR (CKD) >90 (>60 ml/min/1.73 sqM); Anion Gap 7 mmol/L; Blood Urea Nitrogen 14 mg/dL (7-17); Carbon Dioxide 24 mmol/L (22-30); Chloride 103 mmol/L (98-107); Glucose 131 mg/dL (74-99); Magnesium 2.1 mg/dL (1.6-2.3); Non-African American GFR(CKD) >90 (>60 ml/min/1.73 sqM); Potassium 4.6 mmol/L (3.5-5.1); Sodium 134 mmol/L (137-145)
[2021-09-04 07:59] LABS: Glucose,Whole Blood 110 mg/dL (75-99)
[2021-09-04] MEDS: INSULIN ASPART (NovoLOG) 100 UNIT/ML VIAL SQ SCH ×4 (08:18→20:36)
[2021-09-04] MEDS: HEPARIN SODIUM,PORCINE/PF 5,000 UNIT/0.5 ML SYRINGE SQ SCH ×2 (08:20→20:37)
[2021-09-04] MEDS: FAMOTIDINE 20 MG/2 ML VIAL IV SCH ×2 (08:20→20:36)
[2021-09-04 09:38] LABS: T4, Free (Free Thyroxine) 1.05 ng/dL (0.78-2.19)
[2021-09-04] MEDS: ACETAMINOPHEN TAB 325 MG TAB PO PRN ×2 (11:18→17:32)
[2021-09-04 12:14] LABS: Glucose,Whole Blood 138 mg/dL (75-99)
--- NOTE | 2021-09-04 12:51 | P.HPIM ---
History of Present Illness This is a pleasant 71 years old female with past medical history of Osteoarthritis , GLAUCOMA, BACK PAIN. , OSTEOPOROSIS. Presents because of nausea vomiting and dizziness of one-day duration. Patient started having lightheadedness and dizziness yesterday and felt like the room was spinning around her. Also associated with vomiting twice yesterday, one at home one at the emergency room but with no abdominal pain and normal bowel movements. She denies weakness or numbness. No blurred vision or slurred speech. However she started complaining of from [id number] headaches 5/10 in severity, fro ntal this morning. But also she thinks is related to avoid in her morning coffee cup. She denies chest pain or dyspnea. No coughing. No urinary complaints Denies smoking, alcohol or illicit drugs. Vitals are stable, she is slightly tachycardic around 105. Orthostatic vitals were checked and there were negative. CBC is unremarkable. BMP showing normal creatinine 0.3, no significant electrolyte abnormality. Glucose was elevated 167 upon admission, with no history of diabetes. Hemoglobin A1c is 6.5% TSH is low at 0.4 with normal free T4 at 1.0. EKG showing normal sinus rhythm at [address]-T changes. Review of Systems CONSTITUTIONAL: No fever, no malaise, no fatigue. HEENT: No recent visual problems or hearing problems. Denied any sore throat. CARDIOVASCULAR: No orthopnea, PND, no palpitations, no syncope. PULMONARY: No shortness of breath, no cough, no hemoptysis. GASTROINTESTINAL: No diarrhea, no nausea, no vomiting, no abdominal pain. Normoactive bowel sounds. NEUROLOGICAL: No headaches, no weakness, no numbness. HEMATOLOGICAL: Denies any bleeding or petechiae. GENITOURINARY: Denies any burning micturition, frequency, or urgency. MUSCULOSKELETAL/RHEUMATOLOGICAL: Denies any joint pain, swelling, or any muscle pain. ENDOCRINE: Denies any polyuria or polydipsia. Past Medical History Past Medical History: Osteoarthritis (OA) Additional Past Medical History / Comment(s): GLAUCOMA, BACK PAIN. , OSTEOPOROSIS., History of Any Multi-Drug Resistant Organisms: None Reported Past Surgical History: Hysterectomy, Joint Replacement Additional Past Surgical History / Comment(s): RIGHT CATARACT SURGERY, SHELLY TOTAL KNEES, 1/2 OF THYROID REMOVED. Past Anesthesia/Blood Transfusion Reactions: Postoperative Nausea & Vomiting (PONV) Past Psychological History: No Psychological Hx Reported Smoking Status: Never smoker - Past Family History Mother Family Medical History: No Reported History Medications and Allergies Home Medications Medication Instructions Recorded Confirmed Type Bimatoprost [Lumigan .01% Ophth 1 drop LEFT EYE HS 04/05/21 09/03/21 History Soln] prednisoLONE ACETATE 1% OPHTH 1 drops RIGHT EYE BID 09/03/21 09/03/21 History [Pred Forte 1%] Allergies Allergy/AdvReac Type Severity Reaction Status Date / Time guaifenesin Allergy Severe Rapid Verified 09/03/21 20:40 Heart Rate levofloxacin [From Levaquin] Allergy PAIN IN Verified 09/03/21 20:40 NECK,HEAD AND SHOULDER Physical Exam Vitals: Vital Signs Temp Pulse Pulse Pulse Resp BP BP 09/03/21 23:37 98 94 162/110 09/03/21 18:47 97.5 F L 97 18 184/100 BP Pulse Ox 09/03/21 23:37 158/92 09/03/21 18:47 93 L Intake and Output 09/03/21 09/03/21 09/04/21 14:59 22:59 06:59 Other: Weight 74.843 kg GENERAL: The patient is alert and oriented x3, not in any acute distress. Well developed, well nourished. HEENT: Pupils are round and equally reacting to light. EOMI. No scleral icterus. No conjunctival pallor. Normocephalic, atraumatic. No pharyngeal erythema. No thyromegaly. CARDIOVASCULAR: S1 and S2 present. No murmurs, rubs, or gallops. PULMONARY: Chest is clear to auscultation, no wheezing or crackles. ABDOMEN: Soft, nontender, nondistended, normoactive bowel sounds. No palpable organomegaly. MUSCULOSKELETAL: No joint swelling or deformity. EXTREMITIES: No cyanosis, clubbing, or pedal edema. NEUROLOGICAL: Gross neurological examination did not reveal any focal deficits. SKIN: No rashes. No petechiae Results CBC & Chem 7: 09/03/21 20:06 09/04/21 05:47 Labs: Abnormal Lab Results - Last 24 Hours (Table) 09/03/21 09/03/21 Range/Units 20:06 20:06 Sodium 134 L (137-145) mmol/L Carbon Dioxide 20 L (22-30) mmol/L BUN 20 H (7-17) mg/dL Creatinine 0.37 L (0.52-1.04) mg/dL Glucose 212 H (74-99) mg/dL AST 37 H (14-36) U/L Urine Protein Trace H (Negative) Urine Glucose (UA) 3+ H (Negative) Urine Ketones 1+ H (Negative) Assessment and Plan Assessment: Acute dizziness with vertigo Pre-diabetes with hemoglobin A1c 6.5% Hypertension, uncontrolled on admission Systolic murmur History of glaucoma History of osteoarthritis, chronic back pain History of osteoporosis Plan: This is a pleasant 71 years old female who presents with dizziness Check echocardiogram and telemetry Neuro check Check chest x-ray . continue with diabetic diet Consult neurology and cardiology services Admitting Norvasc and monitor blood pressure. Hydralazine when necessary Labs and medication were reviewed.. Continue same treatment. Continue with symptomatic treatment. Resume home medication. Monitor lytes and vitals. DVT and GI prophylaxis. Further recommendations depends on the clinical course of the patient DVT prophylaxis: Subcutaneous heparin GI Prophylaxis: Pepcid PT/OT: Pending Prognosis is guarded
[2021-09-04 13:10] VITALS: BMI 32.2
--- NOTE | 2021-09-04 14:12 | P.CNNES ---
History of Present Illness Consult date: 09/04/21 Chief complaint: dizziness/vertigo History of Present Illness: The patient is a 71-year-old female who is seen in neurologic consultation on September 04, 2021, via telemedicine. The patient reports that at approximately 3 PM yesterday, she had the sudden onset of lightheadedness and spinning. She says she was reading a book. She stood up and suddenly became vertiginous. She said that she had to sit back down. She reports when she is sitting she is only feeling lightheaded. She is unable to walk because of a spinning sensation. The patient does report that with sitting and head turning, her symptoms are worse. In addition to the vertigo, the patient also reported nausea and vomiting, which began approximately one hour after the onset of the vertigo. The patient denies diplopia. She does report feeling "hot". She denies chest pain and shortness of breath hearing loss and tinnitus. The patient denies difficulty with speech and swallowing. There is no difficulty with coordination of her hands. The patient denies recent illnesses. She denies a history of similar symptoms. The patient denies paresthesias and weakness in her extremities. Today, the patient reports feeling slightly better. She does have a frontal headache today. It has improved since she had some coffee and Tylenol. Past Medical History Past Medical History: Osteoarthritis (OA) Additional Past Medical History / Comment(s): GLAUCOMA, BACK PAIN. , OSTEOPOROSIS., History of Any Multi-Drug Resistant Organisms: None Reported Past Surgical History: Hysterectomy, Joint Replacement Additional Past Surgical History / Comment(s): RIGHT CATARACT SURGERY, SHELLY TOTAL KNEES, 1/2 OF THYROID REMOVED. Past Anesthesia/Blood Transfusion Reactions: Postoperative Nausea & Vomiting (PONV) Past Psychological History: No Psychological Hx Reported Smoking Status: Never smoker - Past Family History Mother Family Medical History: No Reported History Medications and Allergies Home Medications Medication Instructions Recorded Confirmed Type Bimatoprost [Lumigan .01% Ophth 1 drop LEFT EYE HS 04/05/21 09/03/21 History Soln] prednisoLONE ACETATE 1% OPHTH 1 drops RIGHT EYE BID 09/03/21 09/03/21 History [Pred Forte 1%] Allergies Allergy/AdvReac Type Severity Reaction Status Date / Time guaifenesin Allergy Severe Rapid Verified 09/03/21 20:40 Heart Rate levofloxacin [From Levaquin] Allergy PAIN IN Verified 09/03/21 20:40 NECK,HEAD AND SHOULDER Physical Examination - Vital Signs Vital Signs: Vital Signs Temp Pulse Pulse Pulse Pulse Pulse Resp 09/04/21 09:33 09/04/21 07:00 98.3 F 116 H 18 09/04/21 06:15 104 H 20 09/04/21 04:30 98.4 F 105 H 105 H 105 H 105 H 20 09/04/21 04:00 20 09/04/21 03:54 97.9 F 105 H 18 09/04/21 03:35 97.5 F L 100 18 09/04/21 02:22 104 H 16 09/04/21 02:20 104 H 16 09/04/21 00:30 97.3 F L 101 H 18 09/03/21 23:37 98 94 09/03/21 18:47 97.5 F L 97 18 BP BP BP BP Pulse Ox 09/04/21 09:33 155/94 09/04/21 07:00 116/102 95 09/04/21 06:15 134/82 95 09/04/21 04:30 168/110 175/95 159/89 96 09/04/21 04:00 09/04/21 03:54 155/89 96 09/04/21 03:35 141/84 96 09/04/21 02:22 150/103 96 09/04/21 02:20 105/103 96 09/04/21 00:30 167/109 98 09/03/21 23:37 162/110 158/92 09/03/21 18:47 184/100 93 L Intake and Output 09/03/21 09/04/21 09/04/21 22:59 06:59 14:59 Intake Total 118 Balance 118 Intake: Oral 118 Other: Voiding Method Bedside Commode Bedside Commode # Voids 1 2 # Bowel Movements 1 Weight 74.843 kg 74.843 kg Gen.: The patient is reclining in the bed. She is well-nourished, well- developed and in no acute distress. HEENT: Head is atraumatic, normocephalic. Fundus not visualized. There is no scleral icterus. There is evidence of bleeding in the right conjunctiva. Mucous membranes are moist. Neck: Supple without carotid bruits Heart: Regular rate and rhythm Extremities: Without edema Neurological examination Mental status: The patient is awake, alert and oriented 3. Her speech is clear. There is no dysarthria or aphasia. Cranial nerves: Pupils are equal at 3 mm and reactive. Visual irwin are full to confrontation. Extraocular movements are intact. There is no nystagmus. There is a brief saccadic movement of the right eye. Facial sensation is intact. There is no facial asymmetry. Hearing is grossly intact. Uvula and palate are midline. Shoulder shrug is symmetric. Tongue protrudes midline. There is no tremor of the tongue. Motor: Strength is 5/5 throughout Sensation: Grossly intact to light touch throughout. There is no extinction with double simultaneous stimulation. Coordination: Finger to nose, [id number] and [id number] testing are intact. Rapid alternating movements are intact. There is no tremor. Deep tendon reflexes: 2+/4+ in the upper extremities. Lower extremity reflexes are difficult to assess. Gait: Not assessed secondary to vertigo Results - Laboratory Findings CBC and BMP: 09/03/21 20:06 09/04/21 05:47 Abnormal Lab Findings: Abnormal Labs 09/03/21 09/03/21 09/03/21 20:06 20:06 22:43 Sodium 134 L Carbon Dioxide 20 L BUN 20 H Creatinine 0.37 L Glucose 212 H POC Glucose (mg/dL) Hemoglobin A1c 6.5 H AST 37 H TSH Urine Protein Trace H Urine Glucose (UA) 3+ H Urine Ketones 1+ H 09/04/21 09/04/21 09/04/21 00:44 05:47 07:47 Sodium 134 L Carbon Dioxide BUN Creatinine 0.39 L Glucose 131 H POC Glucose (mg/dL) 167 H Hemoglobin A1c AST TSH 0.417 L Urine Protein Urine Glucose (UA) Urine Ketones 09/04/21 09/04/21 07:57 12:11 Sodium Carbon Dioxide BUN Creatinine Glucose POC Glucose (mg/dL) 110 H 138 H Hemoglobin A1c AST TSH Urine Protein Urine Glucose (UA) Urine Ketones Assessment and Plan Assessment: 1. The patient's symptoms of vertigo are likely secondary to benign positional vertigo. She has no signs of ataxia or slurred speech which would be more consistent with a central etiology of the vertigo, such as cerebellar infarct. It is important to rule out cerebellar infarct with imaging 2. History of glaucoma Plan: 1. CT scan of brain without contrast looking for signs of cerebellar infarction 2. Physical therapy consultation for tk maneuver 3. Agree with 2-D echocardiogram 4. Carotid Doppler 5. Agree with trial of meclizine Time with Patient: Greater than 30 (spent 35 minutes with patient via telemedicine)
--- NOTE | 2021-09-04 15:17 | XR ---
EXAMINATION TYPE: XR chest 2V DATE OF EXAM: 09/04/2021 COMPARISON: 10/12/2016 HISTORY: Dizziness TECHNIQUE: 2 views FINDINGS: Heart and mediastinum are within normal limits. There is some coarsening of the interstitia l markings. There is no pulmonary consolidation. There are no hilar masses. Bony thorax is intact. Th ere is some osteopenia. IMPRESSION: No active cardiopulmonary disease. Atheromatous aorta. No adverse change.
--- NOTE | 2021-09-04 15:44 | CT ---
EXAMINATION TYPE: CT brain wo con DATE OF EXAM: 09/04/2021 COMPARISON: None HISTORY: vertigo CT DLP: 809.2 mGycm Automated exposure control for dose reduction was used. There is cerebral cortical atrophy. There is no mass effect nor midline shift. There is no sign of in tracranial hemorrhage. Calvarium is intact. There is normal aeration of the mastoid sinuses. IMPRESSION: Negative unenhanced head CT scan.
--- NOTE | 2021-09-04 15:59 | US ---
EXAMINATION TYPE: US carotid duplex BILAT DATE OF EXAM: 09/04/2021 COMPARISON: NONE CLINICAL HISTORY: vertigo. Dizziness Exam done portable EXAM MEASUREMENTS: RIGHT: Peak Systolic Velocity (PSV) cm/sec ----- Right CCA: 98.5 ----- Right ICA: 105.0 ----- Right ECA: 104.0 ICA/CCA ratio: 1.1 RIGHT: End Diastole cm/sec ----- Right CCA: 21.7 ----- Right ICA: 31.8 ----- Right ECA: 11.6 LEFT: Peak Systolic Velocity (PSV) cm/sec ----- Left CCA: 92.5 ----- Left ICA: 87.4 ----- Left ECA: 113.0 ICA/CCA ratio: 0.9 LEFT: End Diastole cm/sec ----- Left CCA: 17.2 ----- Left ICA: 33.9 ----- Left ECA: 13.1 VERTEBRALS (direction of flow): Right Vertebral: Antegrade Left Vertebral: Antegrade Rhythm: Normal No significant stenosis IMPRESSION: There is antegrade flow in the vertebral arteries. The images and measurements suggest close to 0% st enosis in both internal carotid arteries. Criteria for Assigning % of Stenosis / Diameter reduction (Estimation based on the indirect measurements of the internal carotid artery velocities (ICA PSV). 1. Normal (no stenosis)=ICA PSV < 125 cm/s: ratio < 2.0: ICA EDV<40 cm/s. 2. Less than 50% stenosis=ICA PSV < 125 cm/s: ratio < 2.0: ICA EDV<40 cm/s. 3. 50 to 69% stenosis=ICA PSV of 125 to 230 cm/s: ration 2.0 ? 4.0: ICA EDV 40-100 cm/s. 4. Greater than 70% stenosis to near occlusion= ICA PSV > 230 cm/s: ratio > 4.0: ICA EDV > 100 cm/s. 5. Near occlusion= ICA PSV velocities may be low or undetectable: variable ratio and ICA EDV. 6. Total occlusion=unable to detect flow.
--- NOTE | 2021-09-04 17:02 | ECHOF ---
Referral Reason:murmur MEASUREMENTS -------- HEIGHT: 152.4 cm WEIGHT: 74.8 kg BP: 155/94 RVIDd: 3.0 cm (< 3.3) IVSd: 1.2 cm (0.6 - 1.1) LVIDd: 4.2 cm (3.9 - 5.3) LVPWd: 1.0 cm (0.6 - 1.1) IVSs: 1.6 cm LVIDs: 3.1 cm LVPWs: 1.4 cm LAESV Index (A-L): 61.16 ml/m Ao Diam: 2.6 cm (2.0 - 3.7) AV Cusp: 1.2 cm (1.5 - 2.6) LA Diam: 4.9 cm (2.7 - 3.8) MV EXCURSION: 16.396 mm (> 18.000) MV EF SLOPE: 71 mm/s (70 - 150) EPSS: 0.7 cm MV E Javier: 1.27 m/s MV DecT: 126 ms MV A Javier: 0.90 m/s MV E/A Ratio: 1.41 RAP: 5.00 mmHg RVSP: 34.10 mmHg FINDINGS -------- Sinus rhythm. This was a technically adequate study. The left ventricular size is normal. There is mild concentric left ventricular hypertrophy. Overa ll left ventricular systolic function is low-normal with, an EF between 50 - 55 %. The right ventricle is normal in size. LA is severely dilated >40 ml/m2 The right atrial size is normal. Interatrial and interventricular septum intact. The aortic valve is trileaflet and appears structurally normal. There is mild aortic valve sclerosi s. There is no evidence of aortic regurgitation. There is no evidence of aortic stenosis. Moderate mitral regurgitation is present. Mild tricuspid regurgitation present. There is no evidence of pulmonary hypertension. The right v entricular systolic pressure, as measured by Doppler, is 34.10mmHg. Trace/mild (physiologic) pulmonic regurgitation. The aortic root size is normal. Normal inferior vena cava with normal inspiratory collapse consistent with estimated right atrial pre ssure of 5 mmHg. There is no pericardial effusion. CONCLUSIONS -------- 1. The left ventricular size is normal. 2. There is mild concentric left ventricular hypertrophy. 3. Overall left ventricular systolic function is low-normal with, an EF between 50 - 55 %. 4. LA is severely dilated >40 ml/m2 5. There is mild aortic valve sclerosis. 6. Moderate mitral regurgitation is present. 7. Mild tricuspid regurgitation present. 8. Trace/mild (physiologic) pulmonic regurgitation. PLATE PAINTER: Beatris Vernon RDCS
[2021-09-04 17:03] LABS: Glucose,Whole Blood 109 mg/dL (75-99)
[2021-09-04 20:01] LABS: Glucose,Whole Blood 160 mg/dL (75-99)
[2021-09-04] MEDS: DOCUSATE 100 MG CAP PO PRN (20:36)
[2021-09-04] MEDS: LATANOPROST 0.005% OPHTH DROPS 2.5 ML BTL LEFT EYE SCH (20:37)
[2021-09-04] MEDS ORDERED: hydrALAZINE HCL 50 MG TAB PO PRN (21:46)
[2021-09-04] MEDS ORDERED: FAMOTIDINE 20 MG TAB PO SCH (23:53)
[2021-09-05] MEDS: SODIUM CHLORIDE 0.9% 1,000 ML IV SCH (02:50)
[2021-09-05 07:40] LABS: Glucose,Whole Blood 114 mg/dL (75-99)
[2021-09-05] MEDS: INSULIN ASPART (NovoLOG) 100 UNIT/ML VIAL SQ SCH ×4 (07:43→20:12)
[2021-09-05] MEDS: FAMOTIDINE 20 MG TAB PO SCH ×2 (08:40→20:19)
[2021-09-05] MEDS: DOCUSATE 100 MG CAP PO PRN (08:41)
[2021-09-05] MEDS: HEPARIN SODIUM,PORCINE/PF 5,000 UNIT/0.5 ML SYRINGE SQ SCH ×2 (08:44→20:19)
--- NOTE | 2021-09-05 09:18 | P.CRDCN ---
History of Present Illness History of present illness: HISTORY OF PRESENTING ILLNESS This is a pleasant 71-year-old with past medical history significant for arthritis and seasonal ALLERGIES who presents with sudden onset of room spinning sensation worse when she moved her head. She states this happened all of a sudden 2 days ago and then persisted and therefore came to emergency department. She denies any similar episodes. She denies any feeling lightheaded or syncope. She denies any recent fevers, chills, cough. Denies any shortness breath or chest pain. Echo was performed which showed preserved EF and moderate mitral regurgitation. Troponins were negative 2 and patient is noted to be borderline diabetic with hemoglobin A1c 6.5. She was also started on amlodipine 10 mg daily and notes that she had previously had issues with high blood pressure however apparently had checked her blood pressure at her eye doctor and was told it was fairly normal most the time. REVIEW OF SYSTEMS At the time of my exam: CONSTITUTIONAL: Denies fever or chills. CARDIOVASCULAR: Denies chest pain, shortness of breath, orthopnea, PND or pal pitations. RESPIRATORY: Denies cough. GASTROINTESTINAL: Denies abdominal pain, diarrhea, constipation, nausea or vomiting. MUSCULOSKELETAL: Denies myalgias. NEUROLOGIC: Denies numbness, tingling or weakness. ENDOCRINE: Denies fatigue, weight change, polydipsia or polyurina. GENITOURINARY: Denies burning, hematuria or urgency with micturation. HEMATOLOGIC: Denies history of anemia or bleeding. PHYSICAL EXAMINATION Vital signs reviewed. CONSTITUTIONAL: No apparent distress. HEENT: Head is normocephalic. Pupils are equal, round. Sclerae anicteric. Mucous membranes of the mouth are moist. No JVD. No carotid bruit. CHEST EXAMINATION: Lungs are clear to auscultation. No chest wall tenderness is noted on palpation or with deep breathing. HEART EXAMINATION: Regular rate and rhythm. S1, S2 heard. No murmurs, gallops or rub. ABDOMEN: Soft, nontender. Positive bowel sounds. EXTREMITIES: 2+ peripheral pulses, no lower extremity edema and no calf tenderness. NEUROLOGIC EXAMINATION: Patient is awake, alert and oriented x3. ASSESSMENT 1. Dizziness likely related to vertigo 2. Moderate mitral regurgitation 3. Hypertension, not on home medications 4. Newly diagnosed diabetes mellitus type 2 hemoglobin A1c 6.5 PLAN Patient's symptoms appear consistent with vertigo. She does have incidental moderate mitral regurgitation and we will monitor that in the office. She is doing better today. Agree with adding antihypertensives. Would consider lisinopril given newly diagnosed diabetes mellitus however this may be adjusted outpatient. Cleared for discharge. Past Medical History Past Medical History: Osteoarthritis (OA) Additional Past Medical History / Comment(s): GLAUCOMA, BACK PAIN. , OSTEOPOROSIS., History of Any Multi-Drug Resistant Organisms: None Reported Past Surgical History: Hysterectomy, Joint Replacement Additional Past Surgical History / Comment(s): RIGHT CATARACT SURGERY, SHELLY TOTAL KNEES, 1/2 OF THYROID REMOVED. Past Anesthesia/Blood Transfusion Reactions: Postoperative Nausea & Vomiting (PONV) Past Psychological History: No Psychological Hx Reported Smoking Status: Never smoker - Past Family History Mother Family Medical History: No Reported History Medications and Allergies Home Medications Medication Instructions Recorded Confirmed Type Bimatoprost [Lumigan .01% Ophth 1 drop LEFT EYE HS 04/05/21 09/03/21 History Soln] prednisoLONE ACETATE 1% OPHTH 1 drops RIGHT EYE BID 09/03/21 09/03/21 History [Pred Forte 1%] Allergies Allergy/AdvReac Type Severity Reaction Status Date / Time guaifenesin Allergy Severe Rapid Verified 09/03/21 20:40 Heart Rate levofloxacin [From Levaquin] Allergy PAIN IN Verified 09/03/21 20:40 NECK,HEAD AND SHOULDER Physical Exam Vitals: Vital Signs Temp Pulse Pulse Pulse Pulse Resp BP 09/05/21 07:00 97.8 F 98 19 09/05/21 01:47 EDT 98.2 F 70 18 09/04/21 20:00 111 H 91 82 89 22 09/04/21 19:36 98.1 F 111 H 22 188/92 09/04/21 15:00 97.5 F L 109 H 16 161/84 09/04/21 13:00 91 82 89 160/90 BP BP Pulse Ox 09/05/21 07:00 160/87 97 09/05/21 01:47 EDT 145/78 97 09/04/21 20:00 09/04/21 19:36 95 09/04/21 15:00 97 09/04/21 13:00 165/90 156/85 Intake and Output 09/04/21 09/05/21 09/05/21 23:59 06:59 14:59 Other: Voiding Method Bedside Commode # Voids Results 09/03/21 20:06 09/04/21 05:47 Current Medications Generic Name Dose Route Start Last Admin Trade Name Freq PRN Reason Stop Dose Admin Acetaminophen 650 mg 09/04/21 11:06 09/04/21 17:32 Acetaminophen Tab 325 Mg Tab PO 650 mg Q6HR PRN Administration Fever and/ or Pain Amlodipine Besylate 5 mg 09/03/21 23:15 09/04/21 20:36 Amlodipine 5 Mg Tab PO 5 mg HS ALLA Administration Docusate Sodium 100 mg 09/04/21 20:11 09/05/21 08:41 Docusate 100 Mg Cap PO 100 mg DAILY PRN Administration Constipation Famotidine 20 mg 09/05/21 09:00 09/05/21 08:40 Famotidine 20 Mg Tab PO 20 mg Q12HR ALLA Administration Heparin Sodium (Porcine) 5,000 unit 09/04/21 09:00 09/05/21 08:44 Heparin Sodium,Porcine/Pf 5,000 Unit/0.5 Ml Syringe SQ 5,000 unit Q12HR ALLA Administration Hydralazine HCl 50 mg 09/04/21 21:46 09/05/21 08:41 Hydralazine Hcl 50 Mg Tab PO 50 mg Q6HR PRN Administration Blood Pressure - High Sodium Chloride 1,000 mls @ 75 mls/hr 09/03/21 23:45 09/05/21 02:50 Saline 0.9% IV Not Given .[id number] [facility] Insulin Aspart 0 unit 09/04/21 07:30 09/05/21 07:43 Insulin Aspart (Novolog) 100 Unit/Ml Vial SQ Not Given ACHS [facility] Protocol Latanoprost 1 drops 09/04/21 21:00 09/04/21 20:37 Latanoprost 0.005% Ophth Drops 2.5 Ml Btl LEFT EYE 1 drops HS ALLA Administration Meclizine HCl 25 mg 09/03/21 23:43 Meclizine 25 Mg Tab PO TID PRN Vertigo Naloxone HCl 0.2 mg 09/03/21 23:39 Naloxone 0.4 Mg/Ml 1 Ml Vial IV Q2M PRN Opioid Reversal Intake and Output 09/04/21 09/05/21 09/05/21 23:59 06:59 14:59 Other: Voiding Method Bedside Commode # Voids 11/05/21 20:06 09/04/21 05:47
[2021-09-05 11:57] LABS: Glucose,Whole Blood 94 mg/dL (75-99)
[2021-09-05] MEDS: METOPROLOL TARTRATE 25 MG TAB PO SCH ×2 (13:37→20:19)
[2021-09-05] MEDS ORDERED: polyethylene glycoL 3350 17 GM POWD.PACK PO STA (13:53)
[2021-09-05 17:16] LABS: Glucose,Whole Blood 104 mg/dL (75-99)
--- NOTE | 2021-09-05 18:15 | P.PN ---
Subjective Progress Note Date: 09/05/21 The patient is a 71-year-old female who is seen in neurologic consultation on September 04, 2021, via telemedicine The patient reports that at approximately 3 PM yesterday, she had the sudden onset of lightheadedness and spinning. She says she was reading a book. She stood up and suddenly became vertiginous. She said that she had to sit back down. She reports when she is sitting she is only feeling lightheaded. She is unable to walk because of a spinning sensation. The patient does report that with sitting and head turning, her symptoms are worse. In addition to the vertigo, the patient also reported nausea and vomiting, which began approximately one hour after the onset of the vertigo. The patient denies diplopia. She does report feeling "hot". She denies chest pain and shortness of breath hearing loss and tinnitus. The patient denies difficulty with speech and swallowing. There is no difficulty with coordination of her hands. The patient denies recent illnesses. She denies a history of similar symptoms. The patient denies paresthesias and weakness in her extremities. Today, the patient reports feeling slightly better. She does have a frontal headache today. It has improved since she had some coffee and Tylenol. The patient is seen in neurologic follow-up on September 05, 2021 via telemedicine. She is reclining in the bed. She reports she is feeling very w ell. Her symptoms have resolved. Objective - Vital Signs Vital signs: Vital Signs Temp 97.4 F L 09/05/21 14:38 Pulse 85 09/05/21 16:54 Resp 19 09/05/21 14:38 BP 149/80 09/05/21 16:54 Pulse Ox 98 09/05/21 14:38 Intake & Output 09/04/21 09/05/21 09/05/21 19:59 06:59 18:59 Intake Total Balance Weight Intake: Oral Other: Voiding Method Bedside Commode # Voids 4 # Bowel Movements 1 - Exam Gen.: Patient is reclining in the bed. She is well-nourished, well developed and in no acute distress. HEENT: Head is atraumatic, normocephalic. Fundus not visualized. There is no scleral icterus. Mucous membranes are moist. Neurological examination Mental status: The patient is awake, alert and oriented 3. Her speech is clear. Cranial nerves: 2-[address] scan of the brain images were personally reviewed. There is no evidence of acute hemorrhage or infarct. - Labs CBC & Chem 7: 09/03/21 20:06 09/04/21 05:47 Labs: Abnormal Lab Results - Last 24 Hours (Table) 09/04/21 09/05/21 09/05/21 Range/Units 20:00 07:37 17:15 POC Glucose (mg/dL) 160 H 114 H 104 H (75-99) mg/dL Assessment and Plan Assessment: 1. The patient's symptoms of vertigo are likely secondary to benign positional vertigo. Acute infarct has been ruled out by CT scan. 2. History of glaucoma Plan: 1. The patient is neurologically stable for discharge. 2. Advised patient about the Roc maneuver. 3. The patient asked if she is safe to fly for the . I advised her that she would be safer flying. Time with Patient: Less than 30 (spent 15 minutes with patient's via telemedicine.)
[2021-09-05 20:06] LABS: Glucose,Whole Blood 124 mg/dL (75-99)
[2021-09-05] MEDS: LATANOPROST 0.005% OPHTH DROPS 2.5 ML BTL LEFT EYE SCH (20:18)
[2021-09-05] MEDS: amLODIPine 5 MG TAB PO SCH (20:19)
[2021-09-05] MEDS: ACETAMINOPHEN TAB 325 MG TAB PO PRN (20:22)
--- NOTE | 2021-09-06 07:23 | P.PN ---
Subjective This is a pleasant 71 years old female with past medical history of Osteoarthritis , GLAUCOMA, BACK PAIN. , OSTEOPOROSIS. Presents because of nausea vomiting and dizziness of one-day duration. Patient started having lightheadedness and dizziness yesterday and felt like the room was spinning around her. Also associated with vomiting twice yesterday, one at home one at the emergency room but with no abdominal pain and normal bowel movements. She denies weakness or numbness. No blurred vision or slurred speech. However she started complaining of from [id number] headaches 5/10 in severity, frontal this morning. But also she thinks is related to avoid in her morning coffee cup. She denies chest pain or dyspnea. No coughing. No urinary complaints Denies smoking, alcohol or illicit drugs. Vitals are stable, she is slightly tachycardic around 105. Orthostatic vitals were checked and there were negative. CBC is unremarkable. BMP showing normal creatinine 0.3, no significant electrolyte abnormality. Glucose was elevated 167 upon admission, with no history of diabetes. Hemoglobin A1c is 6.5% TSH is low at 0.4 with normal free T4 at 1.0. EKG showing normal sinus rhythm at [address]-T changes. 09/05/2021 Patient clinically doing well with very minimal dizziness. Did not need mecli zine. Her symptoms improved with IV fluids. Cardiology and neurology cleared the patient for discharge However patient blood pressure was still uncontrolled so we will start the patient on metoprolol and we'll monitor for another 24 hours Currently she is kept on Norvasc 5 mg and metoprolol 25 mg twice a day. Also for her new onset diabetes/prediabetes. Continue with insulin sliding scale. On discharge continue with diabetic diet. Consult director of casework services for a glucometer Objective - Vital Signs Vital signs: Vital Signs Temp 97.8 F 09/05/21 07:00 Pulse 98 09/05/21 07:00 Resp 19 09/05/21 07:00 BP 160/87 09/05/21 07:00 Pulse Ox 97 09/05/21 07:00 Intake & Output 09/04/21 09/05/21 09/05/21 19:59 06:59 18:59 Intake Total Balance Weight Intake: Oral Other: Voiding Method Bedside Commode # Voids - Exam GENERAL: The patient is alert and oriented x3, not in any acute distress. Well developed, well nourished. HEENT: Pupils are round and equally reacting to light. EOMI. No scleral icterus. No conjunctival pallor. Normocephalic, atraumatic. No pharyngeal erythema. No thyromegaly. CARDIOVASCULAR: S1 and S2 present. No murmurs, rubs, or gallops. PULMONARY: Chest is clear to auscultation, no wheezing or crackles. ABDOMEN: Soft, nontender, nondistended, normoactive bowel sounds. No palpable organomegaly. MUSCULOSKELETAL: No joint swelling or deformity. EXTREMITIES: No cyanosis, clubbing, or pedal edema. NEUROLOGICAL: Gross neurological examination did not reveal any focal deficits. SKIN: No rashes. no petechiae. - Labs CBC & Chem 7: 09/03/21 20:06 09/04/21 05:47 Labs: Abnormal Lab Results - Last 24 Hours (Table) 09/04/21 09/04/21 09/05/21 Range/Units 17:01 20:00 07:37 POC Glucose (mg/dL) 109 H 160 H 114 H (75-99) mg/dL Assessment and Plan Assessment: Acute dizziness with vertigo Pre-diabetes with hemoglobin A1c 6.5% Hypertension, uncontrolled on admission Systolic murmur History of glaucoma History of osteoarthritis, chronic back pain History of osteoporosis Plan: This is a pleasant 71 years old female who presents with dizziness Continue with metoprolol and Norvasc and monitor blood pressure Consult neurology and cardiology services Labs and medication were reviewed.. Continue same treatment. Continue with symptomatic treatment. Resume home medication. Monitor lytes and vitals. DVT and GI prophylaxis. Further recommendations depends on the clinical course of the patient DVT prophylaxis: Subcutaneous heparin GI Prophylaxis: Pepcid PT/ot: pending
[2021-09-06] MEDS: INSULIN ASPART (NovoLOG) 100 UNIT/ML VIAL SQ SCH ×2 (08:13→12:45)
[2021-09-06] MEDS: ACETAMINOPHEN TAB 325 MG TAB PO PRN (08:14)
[2021-09-06] MEDS: FAMOTIDINE 20 MG TAB PO SCH (08:15)
[2021-09-06] MEDS: METOPROLOL TARTRATE 25 MG TAB PO SCH (08:15)
[2021-09-06] MEDS: HEPARIN SODIUM,PORCINE/PF 5,000 UNIT/0.5 ML SYRINGE SQ SCH (08:15)
[2021-09-06 08:16] LABS: Glucose,Whole Blood 122 mg/dL (75-99)
[2021-09-06 08:36] VITALS: BP 150/85; PULSE 98; RESP 18; TEMP 97.5
[2021-09-06 12:16] LABS: Glucose,Whole Blood 104 mg/dL (75-99)
--- NOTE | 2021-09-09 03:51 | P.DS ---
Providers Date of admission: 09/04/21 00:42 Expected date of discharge: 09/06/21 Attending physician: Jose F Norton MD Consults: 09/04/21 12:35 Consult Physician Routine Consulting Provider: Socorro Davidson Consult Reason/Comments: Vertigo Do you want consulting provider notified?: Yes 09/04/21 12:36 Consult Physician Routine Consulting Provider: Jose Boyer Consult Reason/Comments: dizziness, heart murmur Do you want consulting provider notified?: Yes Primary care physician: Erickson Long [facility] Course: Final Diagnosis Acute dizziness with vertigo Pre-diabetes with hemoglobin A1c 6.5% Hypertension, uncontrolled on admission Systolic murmur History of glaucoma History of osteoarthritis, chronic back pain History of osteoporosis Discharge disposition Patient is being discharged in a stable condition with guarded prognosis to home. Patient will follow-up with Dr. Long in the outpatient setting upon discharge. Patient is to follow-up with ENT, cardiology, and neurology in the outpatient setting . Patient to continue with meclizine as needed for dizziness and current medications as mentioned below. Total time taken is greater than 35 minutes. Hospital course This is a pleasant 71 years old female with past medical history of Osteoarthritis , GLAUCOMA, BACK PAIN. , OSTEOPOROSIS. Presents because of nausea vomiting and dizziness of one-day duration. Patient started having lightheadedness and dizziness yesterday and felt like the room was spinning around her. Also associated with vomiting twice yesterday, one at home one at the emergency room but with no abdominal pain and normal bowel movements. She denies weakness or numbness. No blurred vision or slurred speech. However she started complaining of from [id number] headaches 5/10 in severity, frontal this morning. But also she thinks is related to avoid in her morning coffee cup. She denies chest pain or dyspnea. No coughing. No urinary complaints Denies smoking, alcohol or illicit drugs. Vitals are stable, she is slightly tachycardic around 105. Orthostatic vitals were checked and there were negative. CBC is unremarkable. BMP showing normal creatinine 0.3, no significant electrolyte abnormality. Glucose was elevated 167 upon admission, with no history of diabetes. Hemoglobin A1c is 6.5% TSH is low at 0.4 with normal free T4 at 1.0. EKG showing normal sinus rhythm at [address]-T changes. 09/05/2021 Patient clinically doing well with very minimal dizziness. Did not need meclizine. Her symptoms improved with IV fluids. Cardiology and neurology cleared the patient for discharge However patient blood pressure was still uncontrolled so we will start the patient on metoprolol and we'll monitor for another 24 hours Currently she is kept on Norvasc 5 mg and metoprolol 25 mg twice a day. Also for her new onset diabetes/prediabetes. Continue with insulin sliding scale. On discharge continue with diabetic diet. Consult registered nurse hh case manager for a glucometer 09/06/2021 Patient is seen in follow up this morning feeling much better and requesting to go home. Patient was evaluated by cardiology and neurology and recommending outpatient follow up on discharge. Patient will continue with meclizine as needed for dizziness. Currently no reports of chest pain, shortness of breath, or palpitations. Patient is afebrile. No reports of nausea or vomiting and patient is tolerating diet. Patient will be discharged home today. Patient is sitting up in the bed comfortably, no acute distress, awake alert and oriented.. HEENT: Normocephalic. Neck is supple. Pupils reactive. Nostrils clear. Oral cavity is moist. Neck reveals no JVD, carotid bruits, or thyromegaly. CHEST EXAMINATION: Trachea is central. Symmetrical expansion. Diminished breath sounds bilaterally with no wheezing or rhonchi noted CARDIAC: Normal S1, S2 with no gallops. No murmurs ABDOMEN: Soft. Bowel sounds normal. No organomegaly. No abdominal bruits. Extremities: reveal no edema. No clubbing or cyanosis Neurologically awake, alert, oriented x3 with well-coordinated movements. No focal deficits noted Skin: No rash or skin lesions. Psychiatric: Cooperative. Non-suicidal Musculoskeletal: No joint swelling or deformity. Normal range of motion. Please refer to medication reconciliation sheet for a list of medications. Patient Condition at Discharge: Stable Plan - Discharge Summary Discharge Rx Participant: No New Discharge Prescriptions: New Famotidine [Pepcid] 20 mg PO Q12HR #60 tab Meclizine [Antivert] 25 mg PO TID PRN #30 tab PRN Reason: Vertigo Docusate [Colace] 100 mg PO BID 30 Days #60 capsule Metoprolol Tartrate 25 mg PO BID 30 Days #60 tab amLODIPine [Norvasc] 5 mg PO DAILY 30 Days #30 tab Continue Bimatoprost [Lumigan .01% Ophth Soln] 1 drop LEFT EYE HS prednisoLONE ACETATE 1% OPHTH [Pred Forte 1%] 1 drops RIGHT EYE BID Discharge Medication List Bimatoprost [Lumigan .01% Ophth Soln] 1 drop LEFT EYE HS 04/05/21 [History] prednisoLONE ACETATE 1% OPHTH [Pred Forte 1%] 1 drops RIGHT EYE BID 09/03/21 [History] Famotidine [Pepcid] 20 mg PO Q12HR #60 tab 09/05/21 [Rx] Docusate [Colace] 100 mg PO BID 30 Days #60 capsule 09/06/21 [Rx] Meclizine [Antivert] 25 mg PO TID PRN #30 tab 09/06/21 [Rx] Metoprolol Tartrate 25 mg PO BID 30 Days #60 tab 09/06/21 [Rx] amLODIPine [Norvasc] 5 mg PO DAILY 30 Days #30 tab 09/06/21 [Rx] Follow up Appointment(s)/Referral(s): Epifanio Crawford MD [REFERRING] - 2 Weeks (neurologist) Juan Gusman DO [Doctor of Osteopathic Medicine] - 10/11/21 9:00 am (ENT please arrive 845am) Jose Boyer DO [STAFF PHYSICIAN] - 09/14/21 2:30 pm (gym supervisor ) Socorro Davidson DO [STAFF PHYSICIAN] - 2 Weeks (neurologist) Erickson Long DO [Primary Care Provider] - 09/06/21 9:30 am (reschedule) Tahir Lemus MD [Medical Doctor] - 2 Weeks (neurologist) Fabi Crawford MD [REFERRING] - 2 Weeks (neurologist) Patient Instructions/Handouts: Vertigo (DC), Type 2 Diabetes in Adults: New Diagnosis (DC) Activity/Diet/Wound Care/Special Instructions: Low carbohydrate/consistent carbohydrate diet Activity is restricted until you see your doctor We recommend to check your glucose 4 times a day, before each meal and at bedtime. Keep the results in a log book and bring it to your doctor on your appointment date. If glucose less than 70 or more than 400, then call primary care provider Follow-up with primary care provider on discharge Follow-up with cardiology outpatient as discussed Follow-up with neurology outpatient Follow-up ENT outpatient Discharge Disposition: HOME SELF-CARE
== END 2021-09-06 14:17 | disposition home or self-care (01) ==
LOC: EC 18:41 → 6NMEDSUR 09-04 00:42
PROVIDERS: ADMIT Internal Medicine; ATTEND Internal Medicine
DX: E11.65 Type 2 diabetes mellitus with hyperglycemia (principal); I10 Essential (primary) hypertension; M81.0 Age-related osteoporosis without current pathological fracture; I34.0 Nonrheumatic mitral (valve) insufficiency; R00.0 Tachycardia, unspecified; Z20.822 Contact with and (suspected) exposure to COVID-19; H55.00 Unspecified nystagmus; H40.9 Unspecified glaucoma; J30.2 Other seasonal allergic rhinitis; G89.29 Other chronic pain; M54.9 Dorsalgia, unspecified; Z88.1 Allergy status to other antibiotic agents; Z88.8 Allergy status to other drugs, medicaments and biological substances; Z90.89 Acquired absence of other organs; Z98.41 Cataract extraction status, right eye; Z96.1 Presence of intraocular lens; Z90.710 Acquired absence of both cervix and uterus; Z96.653 Presence of artificial knee joint, bilateral; Z71.84 Encounter for health counseling related to travel; Z71.89 Other specified counseling
CPT/HCPCS: 96376; 96372 ×2; 96375; 96361; 96374; 99285; 36415 ×2; 93005; 93306; 97161; 97165; 84439; 80053; 80048; 84443; 83605; 83735; 84484 ×2; 85025; 81003; 83036; 87635; 71046; 93880; 70450; G0378 ×3; J3360; J2405; J1644 ×2

== ENCOUNTER 2022-01-19 08:00 | Day surgery (SDC) | payer MEDICARE ==
[~2022-01-19 08:00] MED LIST changes: +LACTATED RINGERS 1,000 ML IV SCH; +LIDOCAINE 1% (10MG/ML) FOR IV START INTRADERMA PRN; -TOBRAMYCIN 0.3% OPHTH DROPS 5 ML BTL RIGHT EYE PRN; -mitoMYcin for Eyes 0.06 MG, EMPTY SYRINGE 1 SYR OP ONE; +mitoMYcin for Eyes 0.06 MG, EMPTY SYRINGE 1 SYR OP PRN
[2022-01-19 08:40] VITALS: TEMP 98.1
[2022-01-19] MEDS: PILOCARPINE 2% OPHTH DROPS 15 ML BTL OP PRN ×3 (08:52→09:02)
[2022-01-19 08:54] LABS: Glucose,Whole Blood 124 mg/dL (75-99)
[2022-01-19] MEDS ORDERED: LACTATED RINGERS 1,000 ML IV ONE (08:57)
[2022-01-19] MEDS ORDERED: fentaNYL (PF) 50 MCG/ML 2 ML AMP ONE (10:11)
[2022-01-19] MEDS ORDERED: MIDAZOLAM 2 MG/2 ML VIAL ONE (10:11)
[2022-01-19] MEDS ORDERED: BALANCED SALT IRRIG SOLN COMB2 15 ML IRRIG.SOLN IRRIGATION ONE (10:41)
[2022-01-19] MEDS ORDERED: LIDOCAINE 2%-EPI 1:100,000 20 ML VIAL SQ ONE (10:42)
[2022-01-19] MEDS ORDERED: FLUORESCEIN STRIPS 1 MG STRIP LEFT EYE ONE ×2 (11:15→11:39)
[2022-01-19] MEDS: TIMOLOL 0.5% OPHTH DROPS 5 ML BTL OP PRN ×2 (11:22→11:42)
[2022-01-19] MEDS: ATROPINE OPHTH SOLN 1% 5ML BTL OPHTHALMIC PRN ×2 (11:22→11:42)
[2022-01-19] MEDS: GENTAMICIN 0.3% OPHTH DROPS 5 ML BTL OPHTHALMIC PRN ×2 (11:23→11:42)
--- NOTE | 2022-01-19 11:49 | P.OP ---
Date of Procedure: 01/19/22 Preoperative Diagnosis: POAG severe Postoperative Diagnosis: same Procedure(s) Performed: express shunt p-50 & MMC Implants: express P-50 Anesthesia: MAC Surgeon: Christian Cornejo Pathology: none sent Condition: stable Disposition: same day Indications for Procedure: glaucoma control problems Operative Findings: no complications
[2022-01-19 11:52] VITALS: RESP 16
[2022-01-19 12:02] VITALS: BP 159/89; PULSE 97
--- NOTE | 2022-01-19 14:48 | OP ---
OPERATIVE REPORT DATE OF SURGERY: 01/19/2022 PROCEDURE: Ex-PRESS shunt implantation with mitomycin in the left eye. PREOPERATIVE DIAGNOSIS: Primary open-angle glaucoma, severe stage. POSTOPERATIVE DIAGNOSIS: Primary open-angle glaucoma, severe stage. SURGEON: Dr. Christian Cornejo. ANESTHESIA: Topical. ESTIMATED BLOOD LOSS: Less than 5 mL. SPECIMEN TAKEN: None. NARRATIVE: After obtaining the appropriate consent, the patient was brought to the operating room. There she was placed under cardiac monitoring, prepped and draped in the usual sterile manner. She was approached from her 12 o'clock position, and at the 1 o'clock position a small conjunctival incision was made using sharp and blunt dissection with Mason scissors. Underneath the Tenon's tissue in this area, 2% lidocaine with epinephrine on an irrigating cannula was infiltrated through the tissues of the superior portion of the eye undermining the conjunctiva as far nasally as potentially possible. This was followed by enlargement of this incision using both sharp and blunt dissections along with creating a peritomy to about 11 o'clock along the superior limbus of the eye. Hemostasis was maintained by using Wet-Field cautery, and an area at approximately 12 o'clock was outlined with Barraquer caliper set to 3 mm. A small square area noted as roughly about 3 x 3 mm in size was marked adjacent to the superior limbus, and the area was outlined using the bipolar cautery to further marni the tissue. A crescent blade was then used to make a partial-thickness scleral flap and a pocket was made through this partial-thickness scleral area creating a square pocket, the apex of which was at the corneal limbus. Once a pocket was created, one blade of the Mason scissors was placed against the inside groove of the scleral pocket and each side of this area was cut, creating a square partial-thickness scleral flap. Additional bipolar/Wet-Field cautery was used to control any additional bleeding which was identified at this stage. Mitomycin 0.2 mg% was placed beneath the scleral flap and against the wall of the patient's eye and conjunctiva was brought over this whole area and the mitomycin was allowed to bathe the area for approximately 3 minutes. Once the time had elapsed, instruments as well as the mitomycin was removed from the field and the area was copiously irrigated with balanced salt solution. At this stage, a 27-gauge hypodermic needle was bent with a needle dolly driver and marked with gentian dia. At the apex of this partial-thickness scleral flap centrally within the area outlined, the needle was advanced parallel to the iris into the anterior chamber. Once this was accomplished, then an Ex-PRESS shunt model P50 was placed through the previously created tract and released once it was sufficiently situated against the patient's sclera. Weck-Sury sponge was used to confirm egress of aqueous and this was followed by securing either side of the flap with a single 10-0 nylon suture moderately loosely against the patient's sclera. Once again the area was confirmed to leak aqueous, which was easily seen using the fluorescein strip as well as a Weck-Sury sponge. Once confirmation that the shunt was performing adequately, the conjunctiva was then brought over the superior limbus of the cornea. It was identified at this stage of the game that a moderately sized buttonhole had been created through the conjunctiva. Because this area was not able to be repaired, a small section of conjunctival tissue was then just completely removed to allow for virgin conjunctiva to be brought over the superior limbus of the patient's eye. This required four 8-0 Vicryl sutures in an interrupted fashion to ensure closure of the conjunctiva to the limbus. The traction 6-0 silk suture which had been placed at the beginning of the case was removed and the eye pressure, which was originally measured at 25.5 mm by Schiotz tonometer with a 7.5 gram weight, was now basically unreadable at the end of the case, below the normal range that the device could measure. Once everything looked secured, no Jami was identified. The patient then received two drops of 0.5% timolol followed by two drops of gentamicin, then followed by two drops of 1% atropine. She was then lightly patched and shielded in the usual manner. There were no complications in the procedure. She tolerated the procedure well and was returned to [facility] in good condition. MMODL / IJN: [id number] /
== END 2022-01-19 12:20 | disposition home or self-care (01) ==
LOC: OR 08:00
PROVIDERS: ATTEND Ophthalmology
DX: H40.1133 Primary open-angle glaucoma, bilateral, severe stage (principal); Z90.710 Acquired absence of both cervix and uterus; Z96.652 Presence of left artificial knee joint; Z85.828 Personal history of other malignant neoplasm of skin; E89.0 Postprocedural hypothyroidism; Z96.1 Presence of intraocular lens; Z88.8 Allergy status to other drugs, medicaments and biological substances; I10 Essential (primary) hypertension; E78.5 Hyperlipidemia, unspecified; Z79.899 Other long term (current) drug therapy; Z88.1 Allergy status to other antibiotic agents; M19.90 Unspecified osteoarthritis, unspecified site
CPT/HCPCS: 66174; C1783; J2250; J3010

== ENCOUNTER → 2022-08-02 | Outpatient (CLI) | payer MEDICARE | LOC: CPPFTMAIN 10:15 | PROVIDERS: ATTEND Family Medicine | DX: R05.3 Chronic cough (principal); Z88.8 Allergy status to other drugs, medicaments and biological substances; Z88.1 Allergy status to other antibiotic agents | CPT/HCPCS: 94060; 94726; 94729 ==

== ENCOUNTER → 2022-09-15 | Outpatient (CLI) | payer MEDICARE ==
--- NOTE | 2022-09-15 15:15 | BD ---
EXAMINATION TYPE: Axial Bone Density DATE OF EXAM: 09/15/2022 COMPARISON: 07.11.2019 CLINICAL HISTORY: 72 years year old Female. ICD-10 CODE: [id number] SCREENING FOR OSTEOPOROSIS Height: 59.6 Weight: 153 FRAX RISK QUESTIONS: Glucocorticoids (More than 3mos): YES (Ex: prednisone, prednisolone, methylprednisolone, dexamethasone, and hydrocortisone). Secondary Osteoporosis: YES 3. Menopause before 45: YES RISK FACTORS HISTORY OF: Family History of Osteoporosis: YES Diet low in dairy products/other sources of calcium: YES Postmenopausal woman: YES, 30 YRS OLD Take estrogen and/or progesterone medications: YES, IN THE PAST FOR 4 YRS Hyperparathyroidism: NO Adrenal Insufficiency: NO MEDICATIONS: Prednisone or other steroids: YES, FOR ASTHMA Osteoporosis Medications: YES, FOSAMAX, 4 YRS, STOPPED NOW Additional Medications: CALCIUM AND VIT D, BP MED, REFLUX MEDS, STATIN FOR CHOLESTEROL, Additional History: REFLUX, HYPERTENSION, CHOLESTEROL, ASTHMA, EXAM MEASUREMENTS: Bone mineral densitometry was performed using the Ecofoot System. Bone mineral density as measured about the Lumbar spine is: ----- L1-L4(G/cm2): 1.004 T Score Values are as follows: ----- L1: -0.8 ----- L2: -1.0 ----- L3: -1.3 ----- L4: -2.6 ----- L1-L4: -1.5 Bone mineral density has: Decreased -5.6% since study of: 07.11.2019 Bone mineral density about the R hip (g/cm2): 0.750 Bone mineral density about the L hip (g/cm2): 0.743 T Score values are as follows: -----R Neck: -2.1 -----L Neck: -2.7 -----R Total: -2.0 -----L Total: -2.1 Bone mineral density has: Increased 4.0% since study of: 07.11.2019 FRAX%s: The graph provided illustrates a 10.8% chance for a major osteoporotic fx and a 4.5% chance f or the hips probability for fx in 10 years time. IMPRESSION: Osteoporosis (T Score less than -2.5). There is increased fracture risk and therapy is usually indicated based on age. Re-Screen 1-2 years. NOTE: T-SCORE=SD OF THE YOUNG ADULT MEAN.
--- NOTE | 2022-09-16 09:56 | MM ---
Reason for Exam: Screening (asymptomatic). Last mammogram was performed 3 year(s) and 2 month(s) ago. Patient History: Menarche at age 9. First Full-Term at age 19. Hysterectomy at age 30. Postmenopausal. Other cancer. Estrogen for 8 years from age 30 until age 38. Progesterone, starting at age 51 for 3 years. Hormonal Contraceptives for 10 years from age 14 until age 26. 1960, Excisional Biopsy on the Right side. Paternal grandmother had breast cancer. Paternal cousin had breast cancer. Maternal cousin had breast cancer. Maternal aunt had breast cancer. Risk Values: Margie 5 year model risk: 2.1%. NCI Lifetime model risk: 4.7%. Prior Study Comparison: 05/24/2016 Bilateral Screening Mammogram, [facility]. 11/10/2017 Bilateral Screening Mammogram, [facility]. 07/11/2019 Bilateral Screening Mammogram, [facility]. Tissue Density: The breast tissue is heterogeneously dense. This may lower the sensitivity of mammography. Findings: Analyzed By CAD. Grouped calcifications are visualized in the bilateral breasts. Right: Anterior depth retroareolar approximately 23 mm from the nipple. Left: Lateral aspect 109 mm from the nipple at middle depth. Grouped calcifications are visualized in the bilateral breasts. Right: CC view Anterior depth retroareolar approximately 23 mm from the nipple. Left: CC view Lateral aspect 109 mm from the nipple at middle/posterior depth. Overall Assessment: Incomplete: need additional imaging evaluation, BI-RAD 0 Management: Diagnostic Mammogram of both breasts. A clinical breast exam by your physician is recommended on an annual basis and results should be correlated with mammographic findings. [facility] will attempt to contact patient to return for supplemental views and ultrasound if indicated. Electronically signed and approved by: Tarik Beltrán DO
== END | disposition home or self-care (01) ==
LOC: RADMAMWWP 10:06
PROVIDERS: ATTEND Family Medicine
DX: Z12.31 Encounter for screening mammogram for malignant neoplasm of breast (principal); Z13.820 Encounter for screening for osteoporosis; M81.0 Age-related osteoporosis without current pathological fracture; Z78.0 Asymptomatic menopausal state; Z80.3 Family history of malignant neoplasm of breast; Z98.890 Other specified postprocedural states
CPT/HCPCS: 77063; 77067; 77080

== ENCOUNTER → 2022-09-23 | Outpatient (CLI) | payer MEDICARE ==
--- NOTE | 2022-09-23 11:11 | MM ---
Reason for Exam: Follow-up at short interval from prior study. Last screening mammogram was performed less than 1 month ago. Patient History: Menarche at age 9. First Full-Term at age 19. Hysterectomy at age 30. Postmenopausal. Other cancer. Estrogen for 8 years from age 30 until age 38. Progesterone, starting at age 51 for 3 years. Hormonal Contraceptives for 10 years from age 14 until age 26. 1960, Excisional Biopsy on the Right side. Paternal grandmother had breast cancer. Paternal cousin had breast cancer. Maternal cousin had breast cancer. Maternal aunt had breast cancer. Risk Values: Margie 5 year model risk: 2.1%. NCI Lifetime model risk: 4.7%. Prior Study Comparison: 07/11/2019 Bilateral Screening Mammogram, [facility]. 09/15/2022 Bilateral MG 3D screening mammo w/cad, [facility]. Tissue Density: There are scattered fibroglandular densities. Findings: Analyzed By CAD. The calcifications in the bilateral breasts become less apparent on magnification views. No suspicious calcifications masses or distortions visualized. Overall Assessment: Benign, BI-RAD 2 Management: Screening Mammogram of both breasts in 1 year. A clinical breast exam by your physician is recommended on an annual basis and results should be correlated with mammographic findings. This exam should not preclude additional follow-up of suspicious palpable abnormalities. Results were given to the patient verbally at the time of exam. Electronically signed and approved by: Tarik Beltrán DO
== END | disposition home or self-care (01) ==
LOC: RADMAMWWP 10:02
PROVIDERS: ATTEND Family Medicine
DX: R92.8 Other abnormal and inconclusive findings on diagnostic imaging of breast (principal); Z78.0 Asymptomatic menopausal state; Z80.3 Family history of malignant neoplasm of breast
CPT/HCPCS: 77066; G0279; 77062

== ENCOUNTER 2022-10-05 09:25 | Day surgery (SDC) | payer MEDICARE ==
--- NOTE | 2022-10-05 04:24 | P.GSHP ---
History of Present Illness H&P Date: 10/05/22 CHIEF COMPLAINT: Colon screen HISTORY OF PRESENT ILLNESS: The patient is a 72-year-old female who presents for colon screen. Lower endoscopy was offered for further evaluation and management. PAST MEDICAL HISTORY: Please see list. PAST SURGICAL HISTORY: Please see list. MEDICATIONS: Please see list. ALLERGIES: Please see list. SOCIAL HISTORY: No illicit drug use FAMILY HISTORY: No reports of Crohn disease or ulcerative colitis. REVIEW OF ORGAN SYSTEMS: CONSTITUTIONAL: No reports of fevers or chills. PHYSICAL EXAM: VITAL SIGNS: Stable GENERAL: Well-developed pleasant in no acute distress. HEENT: No scleral icterus. Extraocular movements grossly intact. Moist buccal mucosa. NECK: Supple without lymphadenopathy. CHEST: Unlabored respirations. Equal bilateral excursions. CARDIOVASCULAR: Regular rate and rhythm. Distal 2+ pulses. ABDOMEN: Soft, nontender, nondistended. MUSCULOSKELETAL: No clubbing, cyanosis, or edema. ASSESSMENT: 1. Colon screen. PLAN: 1. Recommend proceeding with a lower endoscopy Past Medical History Past Medical History: GERD/Reflux, Hyperlipidemia, Hypertension, Osteoarthritis (OA) Additional Past Medical History / Comment(s): GLAUCOMA tx with laser just using lubrication, BACK PAIN. , OSTEOPOROSIS., History of Any Multi-Drug Resistant Organisms: None Reported Past Surgical History: Hysterectomy, Joint Replacement Additional Past Surgical History / Comment(s): both CATARACT SURGERY, as well as shunt to both eyes to relieve pressure., SHELLY TOTAL KNEES replaced, 1/2 OF THYROID REMOVED. Past Anesthesia/Blood Transfusion Reactions: Postoperative Nausea & Vomiting (PONV) Additional Past Anesthesia/Blood Transfusion Reaction / Comment(s): no blood transfusions Smoking Status: Never smoker - Past Family History Mother Family Medical History: No Reported History Additional Family Medical History / Comment(s): mom adopted, rheumatic fever as a teenager Father Family Medical History: Cancer Additional Family Medical History / Comment(s): prostate cancer Medications and Allergies Home Medications Medication Instructions Recorded Confirmed Type Famotidine [Pepcid] 20 mg PO Q12HR #60 tab 09/05/21 10/03/22 Rx Meclizine [Antivert] 25 mg PO TID PRN #30 tab 09/06/21 10/03/22 Rx Acetaminophen [Tylenol Arthritis] 1,300 mg PO BID 01/17/22 10/03/22 History Calcium Carbonate [Calcium] 1 tab PO DAILY 01/17/22 10/03/22 History Cholecalciferol [Vitamin D3 (25 1 tab PO DAILY 01/17/22 10/03/22 History Mcg = 1000 Iu)] Losartan [Cozaar] 50 mg PO QAM 01/17/22 10/03/22 History Rosuvastatin [Crestor] 10 mg PO QAM 01/17/22 10/03/22 History Alendronate Sodium [Fosamax] 70 mg PO FR 10/03/22 10/03/22 History Allergies Allergy/AdvReac Type Severity Reaction Status Date / Time guaifenesin Allergy Severe Rapid Verified 10/03/22 14:57 Heart Rate levofloxacin [From Levaquin] Allergy PAIN IN Verified 10/03/22 14:57 NECK,HEAD AND SHOULDER
[~2022-10-05 09:25] MED LIST changes: -LIDOCAINE 1% (10MG/ML) FOR IV START INTRADERMA PRN; -mitoMYcin for Eyes 0.06 MG, EMPTY SYRINGE 1 SYR OP PRN
[2022-10-05 10:42] VITALS: RESP 16; TEMP 97.2
[2022-10-05 10:56] LABS: Glucose,Whole Blood 115 mg/dL (70-110)
[2022-10-05] MEDS ORDERED: PROPOFOL 10 MG/ML 20 ML VIAL IV ONE (10:57)
--- NOTE | 2022-10-05 11:24 | P.GSHP ---
History of Present Illness H&P Date: 10/05/22 PREOPERATIVE DIAGNOSIS: Colonoscopy screening. POSTOPERATIVE DIAGNOSIS: Colonoscopy screening. Diverticulosis, scattered. Severe constipation Severe sigmoid diverticulosis OPERATION: Colonoscopy to the cecum, ileocecal valve and appendiceal orifice. SURGEON: Jasmine Amador MD. ANESTHESIA: MAC. INDICATIONS: The patient is a 72-year-old female who presents for colonoscopy screening. Last colonoscopy 10 years ago. Benefits and risks were described and informed consent was obtained. DESCRIPTION OF PROCEDURE: The patient had undergone Sutab prep. The patient had been brought into the operating room and laid in the left lateral decubitus position. After adequate intravenous sedation, the rectum was examined with 2% lidocaine jelly. No external hemorrhoids were encountered. The rectal tone was within normal limits. No lesions were palpated in the rectal vault. An Olympus colonoscope was advanced until the cecum, ileocecal valve and appendiceal orifice were clearly viewed. The prep was poor. Scattered diverticulosis was severe sigmoid diverticulosis was encountered. Abdominal pressure was needed to advance the scope. Limited views to exclude colonic polyps. No evidence of focal colitis was found. Retroflexion of the scope demonstrated grade 1 internal hemorrhoids without active bleeding or inflammation. The colon was desufflated. The patient had tolerated the procedure well. Withdrawal time was over 6 minutes. FINDINGS: Aronchick preparation quality scale 4 (1-5) Internal hemorrhoids, grade 1 No external prolapsed hemorrhoids. No arteriovenous malformations. Limited view to exclude adenomatous polyps. No focal colitis. Severe sigmoid diverticulosis RECOMMENDATIONS: Lower endoscopy in 3 years2024 Past Medical History Past Medical History: GERD/Reflux, Hyperlipidemia, Hypertension, Osteoarthritis (OA) Additional Past Medical History / Comment(s): GLAUCOMA tx with laser just using lubrication, BACK PAIN. , OSTEOPOROSIS., History of Any Multi-Drug Resistant Organisms: None Reported Past Surgical History: Hysterectomy, Joint Replacement Additional Past Surgical History / Comment(s): both CATARACT SURGERY, as well as shunt to both eyes to relieve pressure., SHELLY TOTAL KNEES replaced, 1/2 OF THYROID REMOVED. Past Anesthesia/Blood Transfusion Reactions: Postoperative Nausea & Vomiting (PO NV) Additional Past Anesthesia/Blood Transfusion Reaction / Comment(s): no blood transfusions Smoking Status: Never smoker - Past Family History Mother Family Medical History: No Reported History Additional Family Medical History / Comment(s): mom adopted, rheumatic fever as a teenager Father Family Medical History: Cancer Additional Family Medical History / Comment(s): prostate cancer Medications and Allergies Home Medications Medication Instructions Recorded Confirmed Type Famotidine [Pepcid] 20 mg PO Q12HR #60 tab 09/05/21 10/03/22 Rx Meclizine [Antivert] 25 mg PO TID PRN #30 tab 09/06/21 10/03/22 Rx Acetaminophen [Tylenol Arthritis] 1,300 mg PO BID 01/17/22 10/03/22 History Calcium Carbonate [Calcium] 1 tab PO DAILY 01/17/22 10/03/22 History Cholecalciferol [Vitamin D3 (25 1 tab PO DAILY 01/17/22 10/03/22 History Mcg = 1000 Iu)] Losartan [Cozaar] 50 mg PO QAM 01/17/22 10/03/22 History Rosuvastatin [Crestor] 10 mg PO QAM 01/17/22 10/03/22 History Alendronate Sodium [Fosamax] 70 mg PO FR 10/03/22 10/03/22 History Allergies Allergy/AdvReac Type Severity Reaction Status Date / Time guaifenesin Allergy Severe Rapid Verified 10/05/22 10:39 Heart Rate levofloxacin [From Levaquin] Allergy PAIN IN Verified 10/05/22 10:39 NECK,HEAD AND SHOULDER Surgical - Exam Vital Signs Temp Pulse Resp BP Pulse Ox 97.2 F L 107 H 16 180/86 97 10/05/22 10:40 10/05/22 10:40 10/05/22 10:40 10/05/22 10:40 10/05/22 10:40 Results - Labs Abnormal Lab Results - Last 24 Hours (Table) 10/05/22 Range/Units 10:55 POC Glucose (mg/dL) 115 H (70-110) mg/dL
--- NOTE | 2022-10-05 11:25 | P.PCN ---
Date of Procedure: 10/05/22 Description of Procedure: PREOPERATIVE DIAGNOSIS: Colonoscopy screening. POSTOPERATIVE DIAGNOSIS: Colonoscopy screening. Diverticulosis, scattered. Severe constipation Severe sigmoid diverticulosis OPERATION: Colonoscopy to the cecum, ileocecal valve and appendiceal orifice. SURGEON: Jasmine Amador MD. ANESTHESIA: MAC. INDICATIONS: The patient is a 72-year-old female who presents for colonoscopy screening. Last colonoscopy 10 years ago. Benefits and risks were described and informed consent was obtained. DESCRIPTION OF PROCEDURE: The patient had undergone Sutab prep. The patient had been brought into the operating room and laid in the left lateral decubitus position. After adequate intravenous sedation, the rectum was examined with 2% lidocaine jelly. No external hemorrhoids were encountered. The rectal tone was within normal limits. No lesions were palpated in the rectal vault. An Olympus colonoscope was advanced until the cecum, ileocecal valve and appendiceal orifice were clearly viewed. The prep was poor. Scattered diverticulosis was severe sigmoid diverticulosis was encountered. Abdominal pressure was needed to advance the scope. Limited views to exclude colonic polyps. No evidence of focal colitis was found. Retroflexion of the scope demonstrated grade 1 internal hemorrhoids without active bleeding or inflammation. The colon was desufflated. The patient had tolerated the procedure well. Withdrawal time was over 6 minutes. FINDINGS: Aronchick preparation quality scale 4 (1-5) Internal hemorrhoids, grade 1 No external prolapsed hemorrhoids. No arteriovenous malformations. Limited view to exclude adenomatous polyps. No focal colitis. Severe sigmoid diverticulosis RECOMMENDATIONS: Lower endoscopy in 3 years, 2024 Plan - Discharge Summary Discharge Rx Participant: No New Discharge Prescriptions: Continue Famotidine [Pepcid] 20 mg PO Q12HR #60 tab Acetaminophen [Tylenol Arthritis] 1,300 mg PO BID Rosuvastatin [Crestor] 10 mg PO QAM Losartan [Cozaar] 50 mg PO QAM Alendronate Sodium [Fosamax] 70 mg PO FR Meclizine [Antivert] 25 mg PO TID PRN #30 tab PRN Reason: Vertigo Cholecalciferol [Vitamin D3 (25 Mcg = 1000 Iu)] 1 tab PO DAILY Calcium Carbonate [Calcium] 1 tab PO DAILY Discharge Medication List Famotidine [Pepcid] 20 mg PO Q12HR #60 tab 09/05/21 [Rx] Meclizine [Antivert] 25 mg PO TID PRN #30 tab 09/06/21 [Rx] Acetaminophen [Tylenol Arthritis] 1,300 mg PO BID 01/17/22 [History] Calcium Carbonate [Calcium] 1 tab PO DAILY 01/17/22 [History] Cholecalciferol [Vitamin D3 (25 Mcg = 1000 Iu)] 1 tab PO DAILY 01/17/22 [History] Losartan [Cozaar] 50 mg PO QAM 01/17/22 [History] Rosuvastatin [Crestor] 10 mg PO QAM 01/17/22 [History] Alendronate Sodium [Fosamax] 70 mg PO FR 10/03/22 [History] Follow up Appointment(s)/Referral(s): Jasmine Amador MD [STAFF PHYSICIAN] - 10/25/22 Patient Instructions/Handouts: Diverticulosis (DC), Diverticulosis Diet (GEN) Activity/Diet/Wound Care/Special Instructions: Colonoscopy in 3 years, 2024 Discharge Disposition: HOME SELF-CARE
[2022-10-05 11:41] VITALS: BP 155/76; PULSE 91
== END 2022-10-05 12:00 | disposition home or self-care (01) ==
LOC: ORWHC2ENDO 09:25
PROVIDERS: ATTEND Surgery Plastic and Reconstructive Surgery
DX: Z12.11 Encounter for screening for malignant neoplasm of colon (principal); K57.30 Diverticulosis of large intestine without perforation or abscess without bleeding; K64.0 First degree hemorrhoids; I10 Essential (primary) hypertension; E78.5 Hyperlipidemia, unspecified; K21.9 Gastro-esophageal reflux disease without esophagitis; M19.90 Unspecified osteoarthritis, unspecified site; M81.0 Age-related osteoporosis without current pathological fracture; Z98.890 Other specified postprocedural states; Z90.89 Acquired absence of other organs; Z80.42 Family history of malignant neoplasm of prostate; Z82.69 Family history of other diseases of the musculoskeletal system and connective tissue; Z96.653 Presence of artificial knee joint, bilateral; Z79.811 Long term (current) use of aromatase inhibitors; Z79.899 Other long term (current) drug therapy; Z88.1 Allergy status to other antibiotic agents; Z88.8 Allergy status to other drugs, medicaments and biological substances
CPT/HCPCS: 45378; J2704

== ENCOUNTER 2022-11-26 16:45 | Emergency (ER) | payer MEDICARE ==
[2022-11-26 16:56] VITALS: RESP 17
--- NOTE | 2022-11-26 17:58 | ED ---
General Adult HPI - General Chief complaint: Fall Stated complaint: Fall Time Seen by Provider: 11/26/22 17:44 Source: patient, EMS, RN notes reviewed Mode of arrival: EMS Limitations: no limitations - History of Present Illness Initial comments: 72-year-old female presents to the emergency department after a fall. Patient notes that she was in her garage and she tripped over her puppy. She denies any dizziness, lightheadedness prior to the event. She is complaining of a right bicep pain and left knee swelling. She is able to move her leg however she is unable to bear weight. She reports a bilateral total knee "Years ago. " He has not taken anything for her pain. She denies hitting her head, any loss of consciousness, any anticoagulant use. - Related Data Home Medications Medication Instructions Recorded Confirmed Acetaminophen [Tylenol Arthritis] 1,300 mg PO BID 01/17/22 10/03/22 Calcium Carbonate [Calcium] 1 tab PO DAILY 01/17/22 10/03/22 Cholecalciferol [Vitamin D3 (25 1 tab PO DAILY 01/17/22 10/03/22 Mcg = 1000 Iu)] Losartan [Cozaar] 50 mg PO QAM 01/17/22 10/03/22 Rosuvastatin [Crestor] 10 mg PO QAM 01/17/22 10/03/22 Alendronate Sodium [Fosamax] 70 mg PO FR 10/03/22 10/03/22 Previous Rx's Medication Instructions Recorded Famotidine [Pepcid] 20 mg PO Q12HR #60 tab 09/05/21 Meclizine [Antivert] 25 mg PO TID PRN #30 tab 09/06/21 Allergies Allergy/AdvReac Type Severity Reaction Status Date / Time guaifenesin Allergy Severe Rapid Verified 11/26/22 16:56 Heart Rate levofloxacin [From Levaquin] Allergy PAIN IN Verified 11/26/22 16:56 NECK,HEAD AND SHOULDER Review of Systems ROS Statement: Those systems with pertinent positive or pertinent negative responses have been documented in the HPI. ROS Other: All systems not noted in ROS Statement are negative. Past Medical History Past Medical History: GERD/Reflux, Hyperlipidemia, Hypertension, Osteoarthritis (OA) Additional Past Medical History / Comment(s): GLAUCOMA tx with laser just using lubrication, BACK PAIN. , OSTEOPOROSIS., History of Any Multi-Drug Resistant Organisms: None Reported Past Surgical History: Hysterectomy, Joint Replacement Additional Past Surgical History / Comment(s): both CATARACT SURGERY, as well as shunt to both eyes to relieve pressure., SHELLY TOTAL KNEES replaced, 1/2 OF THYROID REMOVED. Past Anesthesia/Blood Transfusion Reactions: Postoperative Nausea & Vomiting (PONV) Additional Past Anesthesia/Blood Transfusion Reaction / Comment(s): no blood transfusions Past Psychological History: No Psychological Hx Reported Smoking Status: Never smoker Past Alcohol Use History: None Reported Past Drug Use History: None Reported - Past Family History Mother Family Medical History: No Reported History Additional Family Medical History / Comment(s): mom adopted, rheumatic fever as a teenager Father Family Medical History: Cancer Additional Family Medical History / Comment(s): prostate cancer General Exam Limitations: no limitations General appearance: alert, in no apparent distress Head exam: Present: atraumatic, normocephalic, normal inspection Eye exam: Present: normal appearance, PERRL, EOMI. Absent: scleral icterus, conjunctival injection, periorbital swelling ENT exam: Present: normal exam, mucous membranes moist Neck exam: Present: normal inspection. Absent: tenderness, meningismus, lymphadenopathy Respiratory exam: Present: normal lung sounds bilaterally. Absent: respiratory distress, wheezes, rales, rhonchi, stridor Cardiovascular Exam: Present: regular rate, normal rhythm, normal heart sounds. Absent: systolic murmur, diastolic murmur, rubs, gallop, clicks GI/Abdominal exam: Present: soft, normal bowel sounds. Absent: distended, tenderness, guarding, rebound, rigid Extremities exam: Present: normal inspection, full ROM, normal capillary refill. Absent: tenderness, pedal edema, joint swelling, calf tenderness Left Knee exam: Present: normal inspection, full ROM, tenderness (generalized ), swelling (mild ). Absent: abrasion, laceration, ecchymosis, deformity, crepitus Back exam: Present: normal inspection Neurological exam: Present: alert, oriented X3, CN II-XII intact Psychiatric exam: Present: normal affect, normal mood Skin exam: Present: warm, dry, intact, normal color. Absent: rash Course Vital Signs 11/26/22 11/26/22 16:48 20:31 Temperature 97.6 F 97.8 F Pulse Rate 90 97 Respiratory 17 17 Rate Blood Pressure 152/79 152/80 O2 Sat by Pulse 97 97 Oximetry - Reevaluation(s) Reevaluation #1: 11/26/22 17:58 History and physical were performed. Patient declines Tylenol at this time. Reevaluation #2: 11/26/22 19:[address] Jose, Orthopedist who recommends getting full tib/fib XR. 11/26/22 19:57 Medical Decision Making - Medical Decision Making Was pt. sent in by a medical professional or institution (, MARTIN, [facility]INO ACCOUNTANT, urgent care, hospital, or half-way...) When possible be specific @ -[No] Did you speak to anyone other than the patient for history (EMS, parent, family, police, friend...)? What history was obtained from this source @ -[No] Did you review nursing and triage notes (agree or disagree)? Why? @ -[I reviewed and agree with nursing and triage notes] Were old charts reviewed (outside hosp., previous admission, EMS record, old EKG, old radiological studies, urgent care reports/EKG's, half-way records)? Report findings @ -[No old charts were reviewed] Differential Diagnosis (chest pain, altered mental status, abdominal pain women, abdominal pain men, vaginal bleeding, weakness, fever, dyspnea, syncope, headache, dizziness, GI bleed, back pain, seizure, CVA, palpatations, mental health)? @ -[not applicable] EKG interpreted by me (3pts min.). @ -[As above] X-rays interpreted by me (1pt min.). @ -minimally displaced fracture of the fibular head CT interpreted by me (1pt min.). @ -[None done] U/S interpreted by me (1pt. min.). @ -[None done] What testing was considered but not performed or refused? (CT, X-rays, U/S, labs)? Why? @ -[None] What meds were considered but not given or refused? Why? @ -[None] Did you discuss the management of the patient with other professionals (professionals i.e. , MARTIN, CASINO ACCOUNTANT, lab, RT, psych nurse, social media manager, food scientist, teacher, chief mechanical officer, case specialist)? Give summary @ -[No] Was smoking cessation discussed for >3mins.? @ -[No] Was critical care preformed (if so, how long)? @ -[No] Were there social determinants of health that impacted care today? How? (Homelessness, low income, unemployed, alcoholism, drug addiction, transportation, low edu. Level, literacy, decrease access to med. care, correction, rehab)? @ -[No] Was there de-escalation of care discussed even if they declined (Discuss DNR or withdrawal of care, Hospice)? DNR status @ -[No] What co-morbidities impacted this encounter? (DM, HTN, Smoking, COPD, CAD, Cancer, CVA, ARF, Chemo, Hep., AIDS, mental health diagnosis, sleep apnea, morbid obesity)? @ -[None] Was patient admitted / discharged? Hospital course, mention meds given and route, prescriptions, significant lab abnormalities, going to OR and other pertinent info. @ -72-year-old female presents to the emergency department for a fall. Patient had a thorough history and physical performed. Physical exam reveals heart rate regular rate and rhythm, lungs clear to auscultation bilaterally abdomen is soft and nontender. Her incision sites appear well healed. L knee with mild edema, able to ambulate. Patient was given tylenol with symptomatic relief on the emergency department. I discussed the results in detail with the patient, patient verbalized understanding and all questions were addressed. Return precautions were discussed. She follow-up with her primary care in 1-2 days. The patient was discharged in stable condition. Patient given a referral for Orthopedics. I discussed the case with CHANELL Chaney who agrees with the plan of care Undiagnosed new problem with uncertain prognosis? @ -[No] Drug Therapy requiring intensive monitoring for toxicity (Heparin, Nitro, Insulin, Cardizem)? @ -[No] Were any procedures done? @ -[No] Diagnosis/symptom? @ -acute Acute, or Chronic, or Acute on Chronic? @ -proximal fibula fracture Uncomplicated (without systemic symptoms) or Complicated (systemic symptoms)? @ -uncomplicated Side effects of treatment? @ -[No] Exacerbation, Progression, or Severe Exacerbation? @ -[No] Poses a threat to life or bodily function? How? (Chest pain, [place], [place], pneumonia, PE, COPD, DKA, ARF, appy, cholecystitis, CVA, Diverticulitis, Homicidal, Suicidal, threat to staff... and all critical care pts) @ -[No] Disposition Clinical Impression: Fall, Fracture of proximal end of fibula Disposition: HOME SELF-CARE Condition: Stable Instructions (If sedation given, give patient instructions): Leg Fracture (ED), Fall Prevention (ED) Additional Instructions: These return to the nearest emergency department if symptoms worsen or persist. Is patient prescribed a controlled substance at d/c from ED?: No Referrals: Erickson Long DO [Primary Care Provider] - 1-2 days Steve Jose DO [Doctor of Osteopathic Medicine] - 1-2 days Time of Disposition: 20:39
--- NOTE | 2022-11-26 18:51 | XR ---
EXAMINATION TYPE: XR elbow complete RT DATE OF EXAM: 11/26/2022 6:42 PM INDICATION: Patient age:Female; 72 years old; Reason for study: fall; [facility]. COMPARISON: No relevant priors TECHNIQUE: The right elbow was examined in AP, lateral, and oblique projections. FINDINGS: No evidence of any acute osseous pathology, joint dislocation, or soft tissue swelling is n oted. No evidence of joint effusion is present. IMPRESSION: No evidence of acute fracture.
--- NOTE | 2022-11-26 18:52 | XR ---
EXAMINATION TYPE: XR shoulder complete RT DATE OF EXAM: 11/26/2022 6:43 PM INDICATION: Patient age:Female; 72 years old; Reason for study: fall; COMPARISON: None TECHNIQUE: The right shoulder was examined in AP, internally rotated and scapular Y projections. . FINDINGS: No evidence of acute osseous pathology, joint dislocation, or soft tissue swelling. Moderate degenera tive changes of the right acromioclavicular and shoulder joints. The remaining portions of the visual ized chest are unremarkable. IMPRESSION: 1. No fracture or dislocation. 2. Moderate osteal arthritis of the right shoulder and acromioclavicular joints.
--- NOTE | 2022-11-26 19:06 | XR ---
EXAMINATION TYPE: XR knee complete LT DATE OF EXAM: 11/26/2022 6:42 PM INDICATION: Patient age:Female; 72 years old; Reason for study: fall; [facility]. COMPARISON: No relevant priors TECHNIQUE: The Left knee(s) was examined in 3 projections. Frontal, lateral and oblique. FINDINGS: Left total knee arthroplasty. Hardware is intact and normally aligned. Cortical deformity a nd lucency at the proximal fibular head consistent with minimally displaced fracture, best appreciate d on lateral views. Well corticated calcifications within the popliteal and infrapatellar soft tissue s. No sizable joint effusion. Mild soft tissue swelling. IMPRESSION: 1. Minimally displaced fracture of the fibular head. 2. Left total knee arthroplasty. Hardware appears intact.
[2022-11-26] MEDS ORDERED: ACETAMINOPHEN TAB 325 MG TAB PO STA (19:54)
--- NOTE | 2022-11-26 20:17 | XR ---
EXAMINATION TYPE: XR tibia fibula LT DATE OF EXAM: 11/26/2022 8:10 PM INDICATION: Patient age:Female; 72 years old; Reason for study: fall; [facility]. COMPARISON: 11/18/2022 knee radiograph TECHNIQUE: The left tibia/fibula was examined in AP and lateral projections. FINDINGS: Total knee arthroplasty changes. Hardware appears intact. Redemonstration of lucency throug h the fibula head. No more distal fracture identified involving the tibia or fibula. IMPRESSION: 1. No additional fractures identified 2. Similar cortical irregularity of the fibular head suggestive of fracture.
[2022-11-26 20:32] VITALS: BP 152/80; PULSE 97; TEMP 97.8
== END 2022-11-26 20:55 | disposition home or self-care (01) ==
LOC: EC 16:45
DX: S82.832A Other fracture of upper and lower end of left fibula, initial encounter for closed fracture (principal); I10 Essential (primary) hypertension; E78.5 Hyperlipidemia, unspecified; K21.9 Gastro-esophageal reflux disease without esophagitis; M19.90 Unspecified osteoarthritis, unspecified site; Z79.899 Other long term (current) drug therapy; Z88.1 Allergy status to other antibiotic agents; Z88.8 Allergy status to other drugs, medicaments and biological substances; W01.0XXA Fall on same level from slipping, tripping and stumbling without subsequent striking against object, initial encounter; Y92.015 Private garage of single-family (private) house as the place of occurrence of the external cause
CPT/HCPCS: 99284

== ENCOUNTER 2023-08-16 15:53 | Emergency (ER) | payer MEDICARE ==
[2023-08-16 16:01] VITALS: RESP 18; TEMP 97.8
[2023-08-16] MEDS ORDERED: FAMOTIDINE 20 MG TAB PO STA (16:17)
--- NOTE | 2023-08-16 16:22 | ED ---
Allergic Reaction HPI - General Chief complaint: Allergic Reaction Stated complaint: Bee sting Time Seen by Provider: 08/16/23 16:03 Source: patient Mode of arrival: EMS Limitations: no limitations - History of Present Illness Initial Comments: This patient is 72-year-old woman who was stung to the posterior aspect of her neck approximately hour prior to arrival here. She started to feel diffuse itching and hives. She felt like her lips were swelling. The patient took Benadryl at home and continued to have the symptoms. She went to urgent care w here she was given injection of Solu-Medrol and sent here by ambulance. Patient states that she has noticed itching has improved slightly. She feels a tightness the epigastric area but otherwise no new symptoms. MD Complaint: allergic reaction Onset/Timin -: hour(s) Exposure: insect bite Symptoms: itching, lip swelling, nausea Severity: moderate Treatment Prior to Arrival: benadryl, oxygen, steroids Previous Allergy History: none - Related Data Home Medications Medication Instructions Recorded Confirmed Acetaminophen [Tylenol Arthritis] 1,300 mg PO BID 01/17/22 10/03/22 Calcium Carbonate [Calcium] 1 tab PO DAILY 01/17/22 10/03/22 Cholecalciferol [Vitamin D3 (25 1 tab PO DAILY 01/17/22 10/03/22 Mcg = 1000 Iu)] Losartan [Cozaar] 50 mg PO QAM 01/17/22 10/03/22 Rosuvastatin [Crestor] 10 mg PO QAM 01/17/22 10/03/22 Alendronate Sodium [Fosamax] 70 mg PO FR 10/03/22 10/03/22 Previous Rx's Medication Instructions Recorded Famotidine [Pepcid] 20 mg PO Q12HR #60 tab 09/05/21 Meclizine [Antivert] 25 mg PO TID PRN #30 tab 09/06/21 Famotidine [Pepcid] 20 mg PO BID #14 tablet 08/16/23 predniSONE 60 mg PO DAILY #30 tab 08/16/23 Allergies Allergy/AdvReac Type Severity Reaction Status Date / Time guaifenesin Allergy Severe Rapid Verified 08/16/23 15:59 Heart Rate bee venom protein (honey bee) Allergy Itching Verified 08/16/23 15:59 levofloxacin [From Levaquin] Allergy PAIN IN Verified 08/16/23 15:59 NECK,HEAD AND SHOULDER Review of Systems ROS Statement: Those systems with pertinent positive or pertinent negative responses have been documented in the HPI. ROS Other: All systems not noted in ROS Statement are negative. Constitutional: Denies: fever, chills Eyes: Denies: vision change Respiratory: Denies: cough, dyspnea, wheezes Cardiovascular: Denies: chest pain, palpitations, edema, syncope Gastrointestinal: Reports: nausea. Denies: abdominal pain, vomiting, diarrhea Genitourinary: Denies: dysuria, hematuria Musculoskeletal: Denies: back pain Skin: Reports: rash Neurological: Denies: headache, weakness, numbness Past Medical History Past Medical History: GERD/Reflux, Hyperlipidemia, Hypertension, Osteoarthritis (OA) Additional Past Medical History / Comment(s): GLAUCOMA tx with laser just using lubrication, BACK PAIN. , OSTEOPOROSIS., History of Any Multi-Drug Resistant Organisms: None Reported Past Surgical History: Hysterectomy, Joint Replacement Additional Past Surgical History / Comment(s): both CATARACT SURGERY, as well as shunt to both eyes to relieve pressure., SHELLY TOTAL KNEES replaced, 1/2 OF THYROID REMOVED. Past Anesthesia/Blood Transfusion Reactions: Postoperative Nausea & Vomiting (PONV) Additional Past Anesthesia/Blood Transfusion Reaction / Comment(s): no blood transfusions Past Psychological History: No Psychological Hx Reported Smoking Status: Never smoker Past Alcohol Use History: None Reported Past Drug Use History: None Reported - Past Family History Mother Family Medical History: No Reported History Additional Family Medical History / Comment(s): mom adopted, rheumatic fever as a teenager Father Family Medical History: Cancer Additional Family Medical History / Comment(s): prostate cancer General Exam Limitations: no limitations General appearance: alert, in no apparent distress Head exam: Present: atraumatic, normocephalic Eye exam: Present: normal appearance. Absent: scleral icterus, conjunctival injection ENT exam: Present: normal oropharynx Respiratory exam: Present: normal lung sounds bilaterally. Absent: respiratory distress, wheezes, rales, rhonchi, stridor Cardiovascular Exam: Present: regular rate, normal rhythm, systolic murmur (Grade 3 systolic ejection murmur, patient states pre-existing). Absent: diastolic murmur, rubs, gallop GI/Abdominal exam: Present: soft. Absent: tenderness, guarding, rebound Extremities exam: Present: normal inspection, normal capillary refill. Absent: pedal edema, calf tenderness Back exam: Present: normal inspection Neurological exam: Present: alert Skin exam: Present: warm, dry, intact, normal color. Absent: rash Course Vital Signs 08/16/23 08/16/23 15:54 18:19 Temperature 97.8 F Pulse Rate 104 H 102 H Respiratory 18 18 Rate Blood Pressure 152/88 149/81 O2 Sat by Pulse 98 94 L Oximetry Medical Decision Making - Medical Decision Making Was pt. sent in by a medical professional or institution (, MARTIN, [facility]ENT, urgent care, hospital, or jail...) When possible be specific @ -[No] Did you speak to anyone other than the patient for history (EMS, parent, family, police, friend...)? What history was obtained from this source @ -[No] Did you review nursing and triage notes (agree or disagree)? Why? @ -[I reviewed and agree with nursing and triage notes] Were old charts reviewed (outside hosp., previous admission, EMS record, old EKG, old radiological studies, urgent care reports/EKG's, jail records)? Report findings @ -[No old charts were reviewed] Differential Diagnosis (chest pain, altered mental status, abdominal pain women, abdominal pain men, vaginal bleeding, weakness, fever, dyspnea, syncope, headache, dizziness, GI bleed, back pain, seizure, CVA, palpatations, mental health, musculoskeletal)? @ -[Not applicable EKG interpreted by me (3pts min.). @ -[As above] X-rays interpreted by me (1pt min.). @ -[None done] CT interpreted by me (1pt min.). @ -[None done] U/S interpreted by me (1pt. min.). @ -[None done] What testing was considered but not performed or refused? (CT, X-rays, U/S, labs)? Why? @ -[None] What meds were considered but not given or refused? Why? @ -[None] Did you discuss the management of the patient with other professionals (professionals i.e. MARTIN Davies, NEWSAGENT, lab, RT, psych nurse, healthcare social worker, casting director, teacher, medical officer, case making machine operator)? Give summary @ -[No] Was smoking cessation discussed for >3mins.? @ -[No] Was critical care preformed (if so, how long)? @ -[No] Were there social determinants of health that impacted care today? How? ( Homelessness, low income, unemployed, alcoholism, drug addiction, transportation, low edu. Level, literacy, decrease access to med. care, intermediate, rehab)? @ -[No] Was there de-escalation of care discussed even if they declined (Discuss DNR or withdrawal of care, Hospice)? DNR status @ -[No] What co-morbidities impacted this encounter? (DM, HTN, Smoking, COPD, CAD, Cancer, CVA, ARF, Chemo, Hep., AIDS, mental health diagnosis, sleep apnea, morbid obesity)? @ -[None] Was patient admitted / discharged? Hospital course, mention meds given and route, prescriptions, significant lab abnormalities, going to OR and other pertinent info. @ -[Patient is 72-year-old woman presenting with reaction to insect sting. She did have good response to medication is feeling better and wanted go home. We discussed appropriate return parameters and follow-up. Undiagnosed new problem with uncertain prognosis? @ -[No] Drug Therapy requiring intensive monitoring for toxicity (Heparin, Nitro, Insulin, Cardizem)? @ -[No] Were any procedures done? @ -[No] Diagnosis/symptom? @ -[Insect sting with local reaction Acute, or Chronic, or Acute on Chronic? @ -[Acute Uncomplicated (without systemic symptoms) or Complicated (systemic symptoms)? @ -[Uncomplicated Side effects of treatment? @ -[No] Exacerbation, Progression, or Severe Exacerbation? @ -[No] Poses a threat to life or bodily function? How? (Chest pain, [place], [place], pneumonia, PE, COPD, DKA, ARF, appy, cholecystitis, CVA, Diverticulitis, Homicidal, Suicidal, threat to staff... and all critical care pts) @ -[No] - EKG Data -: EKG Interpreted by Me EKG shows normal: sinus rhythm, axis (Normal), intervals (Normal), QRS complexes (Normal), ST-T waves (Normal) Rate: tachycardia (Rate 105 bpm) Disposition Clinical Impression: Insect sting Disposition: HOME SELF-CARE Condition: Good Instructions (If sedation given, give patient instructions): Insect Bite or Sting (ED) Prescriptions: Famotidine [Pepcid] 20 mg PO BID #14 tablet predniSONE 60 mg PO DAILY #30 tab Is patient prescribed a controlled substance at d/c from ED?: No Referrals: Erickson Long DO [Primary Care Provider] - 1-2 days
[2023-08-16 18:35] VITALS: BP 149/81; PULSE 102
== END 2023-08-16 18:20 | disposition home or self-care (01) ==
LOC: EC 15:53
DX: T63.441A Toxic effect of venom of bees, accidental (unintentional), initial encounter (principal); E78.5 Hyperlipidemia, unspecified; I10 Essential (primary) hypertension; M19.90 Unspecified osteoarthritis, unspecified site; M81.0 Age-related osteoporosis without current pathological fracture; Z91.030 Bee allergy status; Z88.1 Allergy status to other antibiotic agents; Z88.8 Allergy status to other drugs, medicaments and biological substances; Z79.899 Other long term (current) drug therapy
CPT/HCPCS: 93005; 99284

== ENCOUNTER → 2023-11-17 | Outpatient (CLI) | payer MEDICARE ==
--- NOTE | 2023-11-20 20:42 | MM ---
Reason for Exam: Screening (asymptomatic). Last mammogram was performed 1 year(s) and 2 month(s) ago. Patient History: Menarche at age 9. First Full-Term at age 19. Hysterectomy at age 30. Postmenopausal. Other cancer. Estrogen for 8 years from age 30 until age 38. Progesterone, starting at age 51 for 3 years. Hormonal Contraceptives for 10 years from age 14 until age 26. 1960, Excisional Biopsy on the Right side. Paternal grandmother had breast cancer. Paternal cousin had breast cancer. Maternal cousin had breast cancer. Maternal aunt had breast cancer. Risk Values: Margie 5 year model risk: 2.1%. NCI Lifetime model risk: 4.4%. Prior Study Comparison: 07/11/2019 Bilateral Screening Mammogram, [facility]. 09/15/2022 Bilateral MG 3D screening mammo w/cad, [facility]. 09/23/2022 Bilateral MG 3D work up w/cad SHELLY, [facility]. Tissue Density: There are scattered fibroglandular densities. Findings: Analyzed By CAD. Unchanged rounded and dystrophic calcifications right breast. Unchanged asymmetric density superior left MLO view. There is no suspicious group of microcalcifications or new suspicious mass in either breast. Overall Assessment: Benign, BI-RAD 2 Management: Screening Mammogram of both breasts in 1 year. . Patient should continue monthly self-breast exams. A clinical breast exam by your physician is recommended on an annual basis. This exam should not preclude additional follow-up of suspicious palpable abnormalities. Note on Margie scores and lifetime risk: 1. A Margie score greater than 3% is considered moderate risk. If this is the case, consider specialist referral to assess eligibility for a risk reducing agent. 2. If overall lifetime risk for the development of breast cancer is 20% or higher, the patient may qualify for future screening with alternating mammogram and breast MRI. Electronically signed and approved by: Radha Lyons M.D. Radiologist
== END | disposition home or self-care (01) ==
LOC: RADMAMWWP 10:14
PROVIDERS: ATTEND Family Medicine
DX: Z12.31 Encounter for screening mammogram for malignant neoplasm of breast (principal); Z80.3 Family history of malignant neoplasm of breast; Z78.0 Asymptomatic menopausal state
CPT/HCPCS: 77063; 77067

== ENCOUNTER → 2023-11-17 | Outpatient (CLI) | payer MEDICARE ==
[~2023-11-17] MED LIST changes: +DENOSUMAB 60 MG/ML 1 ML SYRINGE SQ NR; -LACTATED RINGERS 1,000 ML IV SCH
[2023-11-17 11:19] VITALS: BP 155/83; PULSE 96; RESP 16; TEMP 97.9
== END ==
LOC: PROCWHC3 10:36
PROVIDERS: ATTEND Family Medicine
DX: M81.0 Age-related osteoporosis without current pathological fracture (principal)
CPT/HCPCS: 96372; J0897

== ENCOUNTER 2024-03-13 18:37 | Emergency (ER) | payer MEDICARE ==
--- NOTE | 2024-03-13 18:54 | ED ---
Chest Pain HPI - General Chief Complaint: Chest Pain Stated Complaint: Chest Pain Time Seen by Provider: 03/13/24 18:53 Source: patient Mode of arrival: ambulatory Limitations: no limitations - History of Present Illness MD Complaint: chest pain Onset/Timin -: days(s) Onset: during rest Pain Location: left chest, right chest Pain Radiation: none Severity: mild Quality: tightness Consistency: constant Improves With: nothing Worsens With: nothing Anginal Symptoms: dyspnea Treatments Prior to Arrival: none - Related Data Home Medications Medication Instructions Recorded Confirmed Acetaminophen [Tylenol Arthritis] 1,300 mg PO BID 01/17/22 11/17/23 Calcium Carbonate [Calcium] 1 tab PO DAILY 01/17/22 11/17/23 Cholecalciferol [Vitamin D3 (25 1 tab PO DAILY 01/17/22 11/17/23 Mcg = 1000 Iu)] Losartan [Cozaar] 50 mg PO QAM 01/17/22 11/17/23 Rosuvastatin [Crestor] 10 mg PO QAM 01/17/22 11/17/23 Previous Rx's Medication Instructions Recorded Meclizine [Antivert] 25 mg PO TID PRN #30 tab 09/06/21 Famotidine [Pepcid] 20 mg PO BID #14 tablet 08/16/23 Allergies Allergy/AdvReac Type Severity Reaction Status Date / Time guaifenesin Allergy Severe Rapid Verified 03/13/24 18:40 Heart Rate bee venom protein (honey bee) Allergy Itching Verified 03/13/24 18:40 levofloxacin [From Levaquin] Allergy PAIN IN Verified 03/13/24 18:40 NECK,HEAD AND SHOULDER Review of Systems ROS Statement: Those systems with pertinent positive or pertinent negative responses have been documented in the HPI. ROS Other: All systems not noted in ROS Statement are negative. Constitutional: Denies: fever, chills, weakness Respiratory: Reports: dyspnea. Denies: cough, wheezes Cardiovascular: Reports: chest pain. Denies: palpitations, orthopnea, edema, syncope Gastrointestinal: Denies: abdominal pain, nausea, vomiting, diarrhea, melena Genitourinary: Denies: dysuria, hematuria Musculoskeletal: Denies: back pain Skin: Denies: rash Neurological: Denies: headache, weakness EKG Findings - EKG Results: EKG: interpreted by TIMD, sinus rhythm, normal axis, normal QRS EKG shows: tachycardia (Rate 104 bpm) Past Medical History Past Medical History: GERD/Reflux, Hyperlipidemia, Hypertension, Osteoarthritis (OA) Additional Past Medical History / Comment(s): GLAUCOMA tx with laser just using lubrication, BACK PAIN. , OSTEOPOROSIS., History of Any Multi-Drug Resistant Organisms: None Reported Past Surgical History: Hysterectomy, Joint Replacement Additional Past Surgical History / Comment(s): both CATARACT SURGERY, as well as shunt to both eyes to relieve pressure., SHELLY TOTAL KNEES replaced, 1/2 OF THYROID REMOVED. Past Anesthesia/Blood Transfusion Reactions: Postoperative Nausea & Vomiting (PONV) Additional Past Anesthesia/Blood Transfusion Reaction / Comment(s): no blood transfusions Past Psychological History: No Psychological Hx Reported Smoking Status: Never smoker Past Alcohol Use History: None Reported Past Drug Use History: None Reported - Past Family History Mother Family Medical History: No Reported History Additional Family Medical History / Comment(s): mom adopted, rheumatic fever as a teenager Father Family Medical History: Cancer Additional Family Medical History / Comment(s): prostate cancer General Exam Limitations: no limitations General appearance: alert, in no apparent distress Head exam: Present: atraumatic, normocephalic Eye exam: Present: normal appearance ENT exam: Present: normal oropharynx Neck exam: Present: normal inspection Respiratory exam: Present: normal lung sounds bilaterally. Absent: respiratory distress, wheezes, rales, rhonchi, stridor, accessory muscle use Cardiovascular Exam: Present: regular rate, normal rhythm, normal heart sounds. Absent: systolic murmur, diastolic murmur, rubs, gallop GI/Abdominal exam: Present: soft. Absent: distended, tenderness, guarding, rebound, rigid, mass Extremities exam: Present: normal inspection, normal capillary refill. Absent: pedal edema, calf tenderness Back exam: Present: normal inspection. Absent: CVA tenderness (R), CVA tenderness (L) Neurological exam: Present: alert Skin exam: Present: warm, dry, intact, normal color. Absent: rash Course Vital Signs 03/13/24 03/13/24 03/13/24 18:38 19:35 20:00 Temperature 97.4 F L Pulse Rate 112 H 100 92 Respiratory 18 18 18 Rate Blood Pressure 184/112 170/99 156/83 O2 Sat by Pulse 98 97 97 Oximetry 03/13/24 22:19 Temperature Pulse Rate 92 Respiratory 18 Rate Blood Pressure 146/81 O2 Sat by Pulse 98 Oximetry Chest Pain MDM - MDM Patient had chest x-ray that I interpreted as negative for acute infiltrate, pneumothorax, congestive heart failure Was pt. sent in by a medical professional or institution (, MARTIN, POST TENSIONING IRONWORKER, urgent care, hospital, or correction...) When possible be specific @ -[No] Did you speak to anyone other than the patient for history (EMS, parent, family, police, friend...)? What history was obtained from this source @ -[No] Did you review nursing and triage notes (agree or disagree)? Why? @ -[I reviewed and agree with nursing and triage notes] Were old charts reviewed (outside hosp., previous admission, EMS record, old EKG, old radiological studies, urgent care reports/EKG's, correction records)? Report findings @ -[No old charts were reviewed] Differential Diagnosis (chest pain, altered mental status, abdominal pain women, abdominal pain men, vaginal bleeding, weakness, fever, dyspnea, syncope, headache, dizziness, GI bleed, back pain, seizure, CVA, palpatations, mental health, musculoskeletal)? @ -[Differential Chest Pain: Stable Angina, Unstable Angina, STEMI, NSTEMI Aortic Dissection, Pneumothorax, Musculoskeletal, Esophageal Spasm GERD, Cholecystitis, Pancreatitis, Zoster, this is not meant to be an all-inclusive list. EKG interpreted by me (3pts min.). @ -[I interpreted as above] X-rays interpreted by me (1pt min.). @ -I interpreted as above CT interpreted by me (1pt min.). @ -[None done] U/S interpreted by me (1pt. min.). @ -[None done] What testing was considered but not performed or refused? (CT, X-rays, U/S, labs)? Why? @ -[None] What meds were considered but not given or refused? Why? @ -[None] Did you discuss the management of the patient with other professionals (professionals i.e. MARTIN Davies, POST TENSIONING IRONWORKER, lab, RT, psych nurse, socially responsible investment adviser, manager surgical, teacher, human resources officer, hospice case manager)? Give summary @ -[No] Was smoking cessation discussed for >3mins.? @ -[No] Was critical care preformed (if so, how long)? @ -[No] Were there social determinants of health that impacted care today? How? (Homelessness, low income, unemployed, alcoholism, drug addiction, transportation, low edu. Level, literacy, decrease access to med. care, correction, rehab)? @ -[No] Was there de-escalation of care discussed even if they declined (Discuss DNR or withdrawal of care, Hospice)? DNR status @ -[No] What co-morbidities impacted this encounter? (DM, HTN, Smoking, COPD, CAD, Cancer, CVA, ARF, Chemo, Hep., AIDS, mental health diagnosis, sleep apnea, morbid obesity)? @ -[Hypertension, hyperlipidemia Was patient admitted / discharged? Hospital course, mention meds given and route, prescriptions, significant lab abnormalities, going to OR and other pertinent info. @ -[Patient is a 73-year-old woman presenting with chest tightness and dyspnea. Her initial workup is negative, but the symptoms are somewhat concerning and I did recommend that the patient have admission to have further cardiology evaluation. At this point the patient is declining. We discussed appropriate further care and follow-up as well as return parameters. Undiagnosed new problem with uncertain prognosis? @ -[No] Drug Therapy requiring intensive monitoring for toxicity (Heparin, Nitro, Insulin, Cardizem)? @ -[No] Were any procedures done? @ -[No] Diagnosis/symptom? @ -[Acute chest pain Acute on chronic hypertension Acute, or Chronic, or Acute on Chronic? @ -[Acute Uncomplicated (without systemic symptoms) or Complicated (systemic symptoms)? @ -[Complicated by dyspnea Side effects of treatment? @ -[No] Exacerbation, Progression, or Severe Exacerbation? @ -[No] Poses a threat to life or bodily function? How? (Chest pain, [place], [place], pneumonia, PE, COPD, DKA, ARF, appy, cholecystitis, CVA, Diverticulitis, Homicidal, Suicidal, threat to staff... and all critical care pts) @ -[Yes Disposition Clinical Impression: Chest pain, Unstable angina Disposition: LEFT AGAINST MEDICAL ADVICE Condition: Undetermined Instructions (If sedation given, give patient instructions): Angina (ED), High Troponin Levels (ED) Is patient prescribed a controlled substance at d/c from ED?: No Referrals: Erickson Long DO [Primary Care Provider] - 1-2 days Jose Boyer DO [STAFF PHYSICIAN] - 1-2 days
[2024-03-13 19:18] VITALS: RESP 18; TEMP 97.4
[2024-03-13 19:26] LABS: Basophils # (A) 0.1 k/uL (0-0.2); Basophils % (A) 1 %; Eosinophils # (A) 0.3 k/uL (0-0.7); Eosinophils % (A) 3 %; HCT 43.4 % (34.0-46.0); HGB 13.8 gm/dL (11.4-16.0); Lymphocytes % (A) 24 %; MCH 29.4 pg (25.0-35.0); MCHC 31.9 g/dL (31.0-37.0); MCV 92.3 fL (80.0-100.0); Mean Platelet Volume 7.8; Monocytes # (A) 0.5 k/uL (0-1.0); Monocytes % (A) 6 %; Neutrophils # (A) 5.2 k/uL (1.3-7.7); Neutrophils % (A) 64 %; Platelet Count 313 k/uL (150-450); WBC 8.2 k/uL (3.8-10.6)
[2024-03-13] MEDS: ASPIRIN 81 MG PO STA (19:34)
--- NOTE | 2024-03-13 19:35 | XR ---
EXAMINATION TYPE: XR chest 2V DATE OF EXAM: 03/13/2024 7:31 PM CLINICAL INDICATION:Female, 73 years old with history of Chest Pain; [facility] COMPARISON: None TECHNIQUE: XR chest 2V Frontal and lateral views of the chest. FINDINGS: Lungs/Pleura: There is no evidence of pleural effusion, focal consolidation, or pneumothorax. Pulmonary vascularity: Unremarkable. Heart/mediastinum: Cardiomediastinal silhouette is unremarkable. Atherosclerotic calcifications are seen in the aorta. Musculoskeletal: No acute osseous pathology. IMPRESSION: No acute cardiopulmonary disease/process.
[2024-03-13 19:37] LABS: ALT 25 U/L (4-34); AST 29 U/L (14-36); African American GFR (CKD) >90 (>60 ml/min/1.73 sqM); Albumin 4.1 g/dL (3.5-5.0); Alkaline Phosphatase 94 U/L (38-126); Anion Gap 10 mmol/L; Blood Urea Nitrogen 20 mg/dL (7-17); Calcium 8.8 mg/dL (8.4-10.2); Carbon Dioxide 22 mmol/L (22-30); Chloride 106 mmol/L (98-107); Glucose 169 mg/dL (74-99); Magnesium 2.2 mg/dL (1.6-2.3); Non-African American GFR(CKD) >90 (>60 ml/min/1.73 sqM); Potassium 4.5 mmol/L (3.5-5.1); Sodium 138 mmol/L (137-145); Total Bilirubin 0.3 mg/dL (0.2-1.3); Total Protein 6.6 g/dL (6.3-8.2)
[2024-03-13 19:42] LABS: Partial Thromboplastin Time 24.2 sec (22.0-30.0); Prothrombin Time 10.5 sec (10.0-12.5)
[2024-03-13 19:46] LABS: NT-Pro-B-Type Natriuretic Pept 1220 pg/mL
[2024-03-13 20:48] VITALS: PULSE 92
[2024-03-13 22:24] VITALS: BP 146/81
== END 2024-03-13 22:19 | disposition left against medical advice (07) ==
LOC: EC 18:37
DX: I20.0 Unstable angina (principal); R07.89 Other chest pain; I10 Essential (primary) hypertension; E78.5 Hyperlipidemia, unspecified; Z88.1 Allergy status to other antibiotic agents; Z91.030 Bee allergy status; Z79.899 Other long term (current) drug therapy; Z53.29 Procedure and treatment not carried out because of patient's decision for other reasons
CPT/HCPCS: 36415; 71046; 80053; 83735; 83880; 84484; 85025; 85379; 85610; 85730; 93005; 99285

== ENCOUNTER 2024-04-16 05:50 | Day surgery (SDC) | payer MEDICARE ==
[2024-04-12 13:41] VITALS: BMI 30.2
[2024-04-16] MEDS ORDERED: HEPARIN SODIUM,PORCINE (1 ML) 2,500 UNIT in SODIUM CHLORIDE 0.9% 250 ML IRRIGATION PRN (05:54)
[2024-04-16] MEDS ORDERED: ALPRAZolam 0.25 MG TAB PO PRN (05:54)
[2024-04-16] MEDS ORDERED: ALPRAZolam 0.5 MG TAB PO PRN (05:54)
[2024-04-16] MEDS ORDERED: NITROGLYCERIN SL TABS 0.4 MG TAB SUBLINGUAL PRN (05:54)
[2024-04-16] MEDS ORDERED: HEPARIN SODIUM,PORCINE 10,000 UNIT in SODIUM CHLORIDE 0.9% 1,000 ML IRRIGATION PRN (05:54)
[2024-04-16 06:33] VITALS: RESP 18; TEMP 98
[2024-04-16] MEDS: SODIUM CHLORIDE 0.9% 1,000 ML in EMPTY BAG 1 BAG IV SCH (06:34)
[2024-04-16] MEDS ORDERED: ATORVASTATIN 80 MG TAB PO ONE (07:00)
[2024-04-16] MEDS ORDERED: ASPIRIN 325 MG TAB PO ONE (07:00)
[2024-04-16] MEDS ORDERED: LIDOCAINE 1% INJ 10MG/ML (20 ML MDV) ONE (07:14)
[2024-04-16] MEDS ORDERED: VERAPAMIL 2.5 MG/ML 2 ML AMP ONE ×2 (07:14→07:48)
[2024-04-16] MEDS: IV FLUID CONTINUATION 1,000 ML IV ONE (07:20)
[2024-04-16] MEDS ORDERED: fentaNYL (PF) 50 MCG/ML 2 ML AMP ONE (07:29)
[2024-04-16] MEDS ORDERED: HEPARIN SODIUM 1,000 UN/ML (10ML VL) ONE (07:32)
[2024-04-16] MEDS: MIDAZOLAM 2 MG/2 ML VIAL IVP ONE ×2 (07:32→07:49)
[2024-04-16] MEDS: fentaNYL (PF) 50 MCG/ML 2 ML AMP IVP ONE (07:32)
[2024-04-16] MEDS: LIDOCAINE 1% INJ 10MG/ML (20 ML MDV) SQ ONE (07:33)
[2024-04-16] MEDS: VERAPAMIL SYRINGE (5 MG/10 ML) INTRAARTER ONE ×2 (07:34→07:49)
[2024-04-16] MEDS: HEPARIN SODIUM 1,000 UN/ML (10ML VL) IVP ONE (07:38)
[2024-04-16] MEDS: IOPAMIDOL-370 200ML BTL INJ ONE ×2 (07:52)
[2024-04-16 11:00] VITALS: BP 119/69; PULSE 86
--- NOTE | 2024-04-16 12:23 | P.CARDCATH ---
Description of Procedure: PROCEDURES PERFORMED: Left heart catheterization, bilateral coronary angiography, ultrasound guided arterial access INDICATION: NSTEMI, angina CONSENT:I have discussed the risks, benefits and alternative therapies for the above-mentioned procedure and for both sedation/analgesia as well as necessary blood product administration, if indicated, as they pertain to this patient. The patient has indicated understanding and acceptance of the risks and procedures discussed. PROCEDURE: After the risks, benefits and alternatives of the above mentioned procedure explained in detail with the patient, informed consent was obtained. Patient was taken to the catheterization lab and prepped and draped in usual fashion. Ultrasound guidance was used to assess for arterial access. 1% lidocaine was used to anesthetize the right radial artery. A 6-Venezuelan sheath was placed in the right radial artery using modified Seldinger technique and ultrasound guidance. Left coronary angiography was performed with a 5-[place]enezuelan JL 3.0 catheter as there was some spasm and somewhat posterior left main and right coronary angiography was performed with a 5-[place]enezuelan FR5 catheter in various views. A 5-Venezuelan FR5 catheter was inserted into the left ventricle and pressure measurements were obtained. The right radial sheath was removed and a TR band was placed with hemostasis achieved. The patient tolerated the procedure well. Patient was transported back to the post catheterization holding area in stable condition. Conscious Sedation: Patient was monitored under the direct supervision of myself for conscious sedation using Versed and fentanyl for a total duration of 19 minutes HEMODYNAMICS: Ao: 131/71 LV: 140/8, LVEDP 13, mean gradient across the aortic valve of 10mmHg SELECTIVE CORONARY ARTERIOGRAPHY: LEFT MAIN: The left main is a large caliber vessel which bifurcates into the LAD and circumflex. There is no significant stenosis. LEFT ANTERIOR DESCENDING CORONARY ARTERY: LAD is a large caliber vessel which wraps around to the apex. There is is proximal and mid LAD 10-20% stenosis and otherwise normal. There are robust left to right collaterals. LEFT CIRCUMFLEX CORONARY ARTERY: Left circumflex is a moderate caliber vessel with mild 10-20% stenosis. RIGHT CORONARY ARTERY: The right coronary artery is a large caliber vessel which gives off a PDA and PLV branch and is the dominant vessel. There is proximal RCA 100% stenosis FINAL IMPRESSION: 1. COMMUNITY OUTREACH COORDINATOR of RCA as described above and otherwise mild luminal irregularities 2. Normal left sided filling pressures 3. Mild aortic stenosis PLAN: 1. Aggressive risk factor modification per most recent ACC/AHA guidelines. 2. Add antianginals with Imdur and monitor response. May consider attempted COMMUNITY OUTREACH COORDINATOR PCI RCA however heavily calcified lesion.
[2024-04-17] MEDS ORDERED: ISOSORBIDE MONONITRATE ER 30 MG TAB.ER.24H PO SCH (09:00)
== END 2024-04-16 11:23 | disposition home or self-care (01) ==
LOC: CATHCVL 05:50
PROVIDERS: ATTEND Internal Medicine
DX: I25.10 Atherosclerotic heart disease of native coronary artery without angina pectoris (principal); I35.0 Nonrheumatic aortic (valve) stenosis
CPT/HCPCS: 93458; C1769 ×2; C1894; C1887; J2250; J2001; J3010; J1644; Q9967; 76937

== ENCOUNTER → 2024-10-15 | Outpatient (CLI) | payer MEDICARE ==
--- NOTE | 2024-10-15 14:29 | CT ---
EXAMINATION TYPE: CT sinus wo con CT DLP: 511 mGycm, Automated exposure control for dose reduction was used. DATE OF EXAM: 10/15/2024 1:49 PM COMPARISON: CT brain 09/04/2021. CLINICAL INDICATION:Female, 74 years old with history of J01.01 ACUTE RECURRENT MAXILLARY SINUSITIS; PH[facility], acute recurrent maxillary sinusitis CONTRAST: None. TECHNIQUE: Multiple thin axial images were obtained through the paranasal sinuses without the use of IV contrast. Additional coronal and sagittal reformatted images were submitted for evaluation. FINDINGS: Frontal sinuses: Normally developed. The left frontal sinus is clear. Minimal mucosal thickening of t he inferior right maxillary sinus. Frontal Recess: Opacified Maxillary Sinuses: Normally developed. Mild mucosal thickening of the bilateral maxillary sinuses wit h some air-fluid levels identified. Maxillary Infundibula([facility]): The left is clear. The right is opacified at the infundibulum. Ethmoid sinuses: Normally developed. Mild to moderate mucosal thickening with right greater than left . Ethmoidal notch: Protected and abutting the lateral lamina. Sphenoid sinuses: Normally developed. Mild mucosal thickening with air-fluid levels. There is sellar sphenoid sinus pneumatization without evidence of dehiscence. No dehiscence of carotid canal. No shannan dence of optic nerve dehiscence within the sphenoid sinus. No evidence of Onodi cells. Sphenoethmoid al recesses: Clear. Nasal septum: Mildly deviated to the right. Nasal Turbinates: Within normal limits. Mastoid air cells & middle ears: The air cells are clear. The middle ears are grossly unremarkable. Modified Soft tissues & Brain: Partially seen without gross abnormality. Bilateral aphakia with punct ate metallic densities within the anterior chamber of both eyes. Other: Cribriform plate demonstrates symmetric Keros classification type 2 cribriform plate. No evidence of bony dehiscence of skull base. Lamina papyracea is intact without evidence of remote orbital fracture or orbital prolapse into the e thmoid sinus. IMPRESSION: 1. Mild paranasal sinus mucous disease with air-fluid levels involving the bilateral maxillary sinuse s and sphenoid sinuses. Correlate for acute sinusitis. 2. The right ostiomeatal unit and bilateral frontonasal recesses are opacified. The left ostiomeatal unit and bilateral sphenoethmoidal recesses are clear. [facility], , 10/15/2024 2:27 PM
== END | disposition home or self-care (01) ==
LOC: RADCTMAIN 13:09
PROVIDERS: ATTEND Internal Medicine
DX: J01.01 Acute recurrent maxillary sinusitis (principal)
CPT/HCPCS: 70486

== ENCOUNTER → 2024-11-29 | Outpatient (CLI) | payer MEDICARE ==
--- NOTE | 2024-11-29 10:09 | MM ---
Reason for Exam: Screening (asymptomatic). Last screening mammogram was performed 12 month(s) ago. Patient History: Menarche at age 9. First Full-Term at age 19. Hysterectomy at age 30. Postmenopausal. Other cancer. Estrogen for 8 years from age 30 until age 38. Progesterone, starting at age 51 for 3 years. Hormonal Contraceptives for 10 years from age 14 until age 26. 1960, Excisional Biopsy on the Right side. Paternal grandmother had breast cancer. Paternal cousin had breast cancer. Maternal cousin had breast cancer. Maternal aunt had breast cancer. Risk Values: Margie 5 year model risk: 2.0%. NCI Lifetime model risk: 4.2%. Prior Study Comparison: 09/15/2022 Bilateral MG 3D screening mammo w/cad, [facility]. 09/23/2022 Bilateral MG 3D work up w/cad SHELLY, [facility]. 11/17/2023 Bilateral MG 3D screening mammo w/cad, [facility]. Tissue Density: There are scattered areas of fibroglandular density. Findings: Analyzed By CAD. Right breast: There is no suspicious group of microcalcifications or new suspicious mass. Benign-appearing calcifications right breast. Left breast: There is no suspicious group of microcalcifications or new suspicious mass. Benign-appearing calcifications left breast. Overall Assessment: Negative, BI-RAD 1 Management: Screening Mammogram of both breasts in [address] [facility] will attempt to contact patient to return for supplemental views and ultrasound if indicated. Patient should continue monthly self-breast exams. A clinical breast exam by your physician is recommended on an annual basis. This exam should not preclude additional follow-up of suspicious palpable abnormalities. Note on Margie scores and lifetime risk: 1. A Margie score greater than 3% is considered moderate risk. If this is the case, consider specialist referral to assess eligibility for a risk reducing agent. 2. If overall lifetime risk for the development of breast cancer is 20% or higher, the patient may qualify for future screening with alternating mammogram and breast MRI. [facility], , 11/29/2024 10:05 AM. Electronically signed and approved by: Tarik Beltrán DO
--- NOTE | 2024-11-29 13:00 | BD ---
EXAMINATION TYPE: Axial Bone Density DATE OF EXAM: 11/29/2024 CLINICAL HISTORY: 74 years old Female. ICD-10 CODE: M81.0 OSTEOPOROSIS , Additional History: Height: 60 Weight: 157 FRAX RISK QUESTIONS: Family History (Parent hip fracture): no Glucocorticoids (More than 3mos): no (Ex: prednisone, prednisolone, methylprednisolone, dexamethasone, and hydrocortisone). History of Fracture in Adulthood: yes Secondary Osteoporosis: yes 3. Menopause before 45: yes RISK FACTORS HISTORY OF: Surgery to Spine/Hip(right/left)/Wrist (right/left): no MEDICATIONS: Thyroid Medications: no Osteoporosis Medications: no EXAM MEASUREMENTS: Bone mineral densitometry was performed using the [employer] System. Bone mineral density as measured about the Lumbar spine is: ----- L1-L4(G/cm2): 1.074 T Score Values are as follows: ----- L1: -0.5 ----- L2: -0.4 ----- L3: -1.0 ----- L4: -1.6 ----- L1-L4: -0.9 Z Score Values are as follows: ----- L1: 1.1 ----- L2: 1.1 ----- L3: 0.6 ----- L4: 0.0 ----- L1-L4: 0.7 Bone mineral density has: Increased 7.0% since study of: 09/15/2022 Bone mineral density about the R hip (g/cm2): 0.740 Bone mineral density about the L hip (g/cm2): 0.737 T Score values are as follows: -----R Neck: -2.5 -----L Neck: -2.8 -----R Total: -2.1 -----L Total: -2.2 Z Score values are as follows: -----R Neck: -0.7 -----L Neck: -1.0 -----R Total: -0.5 -----L Total: -0.5 Bone mineral density has: Decreased -1.2% since study of: 09/15/2022 FRAX%s: The graph provided illustrates a 28.7% chance for a major osteoporotic fx and a 10.1% chance for the hips probability for fx in 10 years time. IMPRESSION: Osteoporosis (T Score less than -2.5). There is increased fracture risk and therapy is usually indicated based on age. Re-Screen 1-2 years. NOTE: T-SCORE=SD OF THE YOUNG ADULT MEAN. [facility], , 11/29/2024 12:58 PM
== END | disposition home or self-care (01) ==
LOC: RADBDWWP 09:34
PROVIDERS: ATTEND Internal Medicine
DX: Z12.31 Encounter for screening mammogram for malignant neoplasm of breast (principal); R92.323 Mammographic fibroglandular density, bilateral breasts; M85.89 Other specified disorders of bone density and structure, multiple sites; M81.0 Age-related osteoporosis without current pathological fracture; Z78.0 Asymptomatic menopausal state; Z80.3 Family history of malignant neoplasm of breast
CPT/HCPCS: 77063; 77067; 77080

== ENCOUNTER 2025-01-13 09:25 | Outpatient (CLI) | payer MEDICARE ==
[2025-01-13 09:44] VITALS: BP 149/85; PULSE 96; RESP 16; TEMP 97.5
[2025-01-13] MEDS: DENOSUMAB 60 MG/ML 1 ML SYRINGE SQ NR (09:44)
== END 2025-01-13 12:10 | disposition home or self-care (01) ==
LOC: PROCWHC3 09:25
PROVIDERS: ATTEND Internal Medicine
DX: M81.0 Age-related osteoporosis without current pathological fracture (principal)
CPT/HCPCS: 96372; J0897